=== PATIENT | female | born 1965 | race African-American/Black ===

== ENCOUNTER 2024-05-01 11:42 | Inpatient (IN) | payer MEDICAID, OTHER ==
[~2024-05-01] VITALS: Ht 168.9 cm; Wt 89.4 kg
[2024-05-01] MEDS: SODIUM CHLORIDE 0.9% 1,000 ML IV ONE ×2 (12:22→16:45)
[2024-05-01] MEDS: ONDANSETRON HCL 4 MG/2 ML VIAL IV ONE (12:32)
[2024-05-01] MEDS: MORPHINE SULFATE 4 MG/ML SYR/VIAL IV ONE (12:33)
[2024-05-01 13:00] LABS: Basophils # (auto) 0.1 10 ^3/uL (0-0.2); Basophils % (auto) 1.3 % (0.0-2.0); Eosinophils # (auto) 0.1 10 ^3/uL (0-0.8); Eosinophils % (auto) 1.2 % (0.0-7.0); Hematocrit 42.2 % (36.0-46.0); Hemoglobin 14.1 g/dL (12.2-16.2); Lymphocytes # (auto) 4.1 10 ^3/uL (0.4-5.4); Lymphocytes % (auto) 51.6 % (10.0-50.0); Mean Corpuscular Hemoglobin 29.8 pg (28.0-32.0); Mean Corpuscular Hgb Conc. 33.4 g/dL (32.0-36.0); Mean Corpuscular Volume 89.1 fL (80.0-100.0); Monocytes # (auto) 0.3 10 ^3/uL (0-1.3); Monocytes % (auto) 4.3 % (0.0-12.0); Neutrophils # (auto) 3.3 10 ^3/uL (1.6-8.6); Neutrophils % (auto) 41.6 % (37.0-80.0); Nucleated Red Blood Cells % 0.1 %; Platelet Count (auto) 316 10^3/uL (140-450); Red Blood Cells 4.73 10^6/uL (4.0-5.20); Red Cell Distribution Width 13.4 % (11.8-14.3)
[2024-05-01 13:20] LABS: Chloride 102 mmol/L (98-107); Potassium 4.2 mmol/L (3.5-5.1); Sodium 135 mmol/L (136-145)
[2024-05-01 13:21] LABS: Anion Gap 6 (5-15); Carbon Dioxide 27 mmol/L (20-31)
[2024-05-01 13:22] LABS: Calcium 9.9 mg/dL (8.7-10.4)
[2024-05-01 13:27] LABS: BUN/Creatinine Ratio 12.2 (10.0-20.0); Blood Urea Nitrogen 15 mg/dL (9-23)
[2024-05-01 13:32] LABS: Glucose 582 mg/dL (74-106)
[2024-05-01 14:21] LABS: Urine Bacteria None Seen /hpf (None Seen)
[2024-05-01 14:48] LABS: Urine Blood Negative /uL (Negative); Urine Clarity Clear (Clear); Urine Color Colorless (Yellow); Urine Protein, UAD Negative (Negative); Urine Specific Gravity 1.027 (1.001-1.035); Urine Urobilinogen Normal (Negative); Urine WBC 1 /hpf (0 - 5); Urine pH 5.5 (5.0-9.0)
[2024-05-01] MEDS: InsuLIN REG 1unit/0.01ml Soln (100units/ml) IV ONE (16:45)
[2024-05-01] MEDS: ACCU-CHEK COMFORT CURVE STRIP VI SCH (17:00)
[2024-05-01] MEDS: InsuLIN REG 1unit/0.01ml Soln (100units/ml) SC SCH (17:00)
[2024-05-01] MEDS ORDERED: DEXTROSE (50%) 50ML SYRG IV PRN (17:00)
[2024-05-01] MEDS: INSULIN LANTUS (GLARGINE) 1 /0.01ml (100units/ml) SC ONE (17:00)
[2024-05-01] MEDS ORDERED: hydrALAZINE HCL 20 MG/ML VL IV PRN (17:00)
[2024-05-01] MEDS: cefTRIAXone 1GM/50ML D5W 50 ML IV ONE (18:04)
[2024-05-01 18:05] LABS: Alanine Aminotransferase 243 U/L (7-40); Aspartate Aminotransferase 316 U/L (13-40); HDL Cholesterol 65 mg/dL (40-59); LDL Cholesterol 126 mg/dL (< 100); Triglycerides 333 mg/dL (< 150)
[2024-05-01 18:06] LABS: Cholesterol 223 mg/dL (< 200)
[2024-05-01] MEDS: FLUCONAZOLE 100 MG TAB PO ONE (18:18)
[2024-05-01] MEDS: HYDROcodone-ACET 5/325MG TAB PO PRN (18:18)
[2024-05-01] MEDS: SODIUM CHLORIDE 0.9% 1,000 ML IV SCH (18:18)
[2024-05-01] MEDS: metFORMIN HYDROCHLORIDE 500 MG TAB PO SCH (18:19)
[2024-05-01] MEDS: LOSARTAN POTASSIUM 25 MG TAB PO ONE (18:32)
[2024-05-01 20:00] VITALS: PULSE 88; RESP 15; O2SAT 94
[2024-05-01] MEDS: MORPHINE SULFATE INJ 2 MG/ml SYRG IV PRN (21:19)
[2024-05-01] MEDS: INSULIN LANTUS (GLARGINE) 1 /0.01ml (100units/ml) SC SCH (22:45)
[2024-05-01] MEDS: PREGABALIN 25 MG CAP PO SCH (22:46)
[2024-05-01] MEDS: ERYTHROMY OPTH OINT 5mg/gm 1gm or 3.5gm tube OP ONE (22:46)
[2024-05-01] MEDS: ATORVASTATIN 20 MG TAB PO SCH (22:46)
[2024-05-01 23:15] VITALS: BP 113/66; PULSE 83; RESP 18; TEMP 97.4; O2SAT 95
[2024-05-01 23:26] VITALS: BP 113/66; PULSE 83; RESP 18; TEMP 97.4; O2SAT 95
[2024-05-02] VITALS (8 sets, daily range): BP systolic 115–138; BP diastolic 45–83; PULSE 75–86; RESP 16–19; TEMP 97.6–98.4; O2SAT 95–99
[2024-05-02] MEDS ORDERED: LOSA-533 PO (01:18)
[2024-05-02] MEDS ORDERED: PREG100C PO (01:18)
[2024-05-02] MEDS ORDERED: TRAZ-227 PO (01:18)
[2024-05-02] MEDS ORDERED: AMIT-118 GT (01:18)
[2024-05-02] MEDS ORDERED: ATOR40TA52 PO (01:18)
[2024-05-02] MEDS ORDERED: METF-370 PO (01:18)
[2024-05-02] MEDS: ERYTHROMY OPTH OINT 5mg/gm 1gm or 3.5gm tube OP SCH (02:00)
[2024-05-02 07:13] LABS: Alanine Aminotransferase 281 U/L (7-40); Albumin 3.7 g/dL (3.2-4.8); Alkaline Phosphatase 373 U/L (46-116); Anion Gap 7 (5-15); Aspartate Aminotransferase 505 U/L (13-40); BUN/Creatinine Ratio 18.1 (10.0-20.0); Bilirubin, Total 0.2 mg/dL (0.2-1.0); Blood Urea Nitrogen 15 mg/dL (9-23); Calcium 9.5 mg/dL (8.7-10.4); Carbon Dioxide 26 mmol/L (20-31); Chloride 107 mmol/L (98-107); Glucose 261 mg/dL (74-106); Potassium 3.9 mmol/L (3.5-5.1); Sodium 140 mmol/L (136-145); Total Protein 6.4 g/dL (5.7-8.2)
[2024-05-02 07:20] LABS: Basophils # (auto) 0 10 ^3/uL (0-0.2); Basophils % (auto) 0.4 % (0.0-2.0); Eosinophils # (auto) 0.2 10 ^3/uL (0-0.8); Eosinophils % (auto) 1.9 % (0.0-7.0); Hematocrit 37.4 % (36.0-46.0); Hemoglobin 12.6 g/dL (12.2-16.2); Lymphocytes # (auto) 5.3 10 ^3/uL (0.4-5.4); Lymphocytes % (auto) 51.8 % (10.0-50.0); Mean Corpuscular Hemoglobin 30.1 pg (28.0-32.0); Mean Corpuscular Hgb Conc. 33.8 g/dL (32.0-36.0); Mean Corpuscular Volume 88.9 fL (80.0-100.0); Monocytes # (auto) 0.4 10 ^3/uL (0-1.3); Monocytes % (auto) 3.8 % (0.0-12.0); Neutrophils # (auto) 4.3 10 ^3/uL (1.6-8.6); Neutrophils % (auto) 42.1 % (37.0-80.0); Nucleated Red Blood Cells % 0.1 %; Platelet Count (auto) 295 10^3/uL (140-450); Red Blood Cells 4.21 10^6/uL (4.0-5.20); Red Cell Distribution Width 13.3 % (11.8-14.3); White Blood Cell 10.3 10^3/uL (4.4-10.8)
[2024-05-02] MEDS: LOSARTAN POTASSIUM 25 MG TAB PO SCH (09:42)
[2024-05-02] MEDS: ENOXAPARIN SOD 40 MG/0.4 ML SYRINGE SC SCH (09:42)
[2024-05-02] MEDS: NICOTINE 7MG/24HR TOPICAL PATCH TD SCH (09:43)
[2024-05-02 09:45] LABS: Hepatitis B Surface Antigen Negative (Negative)
[2024-05-02 10:06] LABS: Hepatitis C Antibody Negative (Negative)
[2024-05-02] MEDS ORDERED: INSULIN LISPRO (HUMAN) 100 UNITS/ML ML SC SCH (11:30)
[2024-05-02] MEDS ORDERED: ARTIFICIAL TEARS 15ml EACHEYE PRN (11:30)
[2024-05-02] MEDS: FLUCONAZOLE 100 MG TAB PO ONE (12:12)
[2024-05-02] MEDS: INSULIN LISPRO (HUMAN) 100 UNITS/ML ML SC SCH (12:13)
[2024-05-03] VITALS (9 sets, daily range): BP systolic 87–127; BP diastolic 39–82; PULSE 81–102; RESP 17–19; TEMP 97.6–98.6; O2SAT 95–98
[2024-05-03] MEDS: ACETAMINOPHEN 325 MG TAB PO PRN (04:02)
[2024-05-03 06:00] LABS: Basophils # (auto) 0.1 10 ^3/uL (0-0.2); Basophils % (auto) 0.9 % (0.0-2.0); Eosinophils # (auto) 0.2 10 ^3/uL (0-0.8); Eosinophils % (auto) 2.3 % (0.0-7.0); Hematocrit 41.5 % (36.0-46.0); Hemoglobin 14.3 g/dL (12.2-16.2); Lymphocytes # (auto) 4.7 10 ^3/uL (0.4-5.4); Lymphocytes % (auto) 45.9 % (10.0-50.0); Mean Corpuscular Hemoglobin 30.1 pg (28.0-32.0); Mean Corpuscular Hgb Conc. 34.4 g/dL (32.0-36.0); Mean Corpuscular Volume 87.5 fL (80.0-100.0); Monocytes # (auto) 0.5 10 ^3/uL (0-1.3); Monocytes % (auto) 5.4 % (0.0-12.0); Neutrophils # (auto) 4.6 10 ^3/uL (1.6-8.6); Neutrophils % (auto) 45.5 % (37.0-80.0); Nucleated Red Blood Cells % 0.1 %; Platelet Count (auto) 321 10^3/uL (140-450); Red Blood Cells 4.74 10^6/uL (4.0-5.20); Red Cell Distribution Width 13.2 % (11.8-14.3); White Blood Cell 10.2 10^3/uL (4.4-10.8)
[2024-05-03 06:32] LABS: Alanine Aminotransferase 211 U/L (7-40); Albumin 4.2 g/dL (3.2-4.8); Alkaline Phosphatase 325 U/L (46-116); Anion Gap 10 (5-15); Aspartate Aminotransferase 115 U/L (13-40); BUN/Creatinine Ratio 17.8 (10.0-20.0); Bilirubin, Total 0.4 mg/dL (0.2-1.0); Blood Urea Nitrogen 13 mg/dL (9-23); Calcium 9.9 mg/dL (8.7-10.4); Carbon Dioxide 24 mmol/L (20-31); Chloride 105 mmol/L (98-107); Glucose 217 mg/dL (74-106); Magnesium 1.5 mg/dL (1.6-2.6); Phosphorus 3.9 mg/dL (2.4-5.1); Potassium 3.6 mmol/L (3.5-5.1); Sodium 139 mmol/L (136-145)
[2024-05-04 01:00] VITALS: BP 111/61; PULSE 78; RESP 18; TEMP 97.9; O2SAT 92
[2024-05-04 05:00] VITALS: BP 101/61; PULSE 91; RESP 19; TEMP 97.9; O2SAT 95
[2024-05-04 07:35] LABS: Alanine Aminotransferase 166 U/L (7-40); Alkaline Phosphatase 365 U/L (46-116)
[2024-05-04 07:36] LABS: Albumin 4.4 g/dL (3.2-4.8); Anion Gap 8 (5-15); Aspartate Aminotransferase 55 U/L (13-40); BUN/Creatinine Ratio 15.2 (10.0-20.0); Bilirubin, Total 0.3 mg/dL (0.2-1.0); Blood Urea Nitrogen 16 mg/dL (9-23); Calcium 10.4 mg/dL (8.7-10.4); Carbon Dioxide 27 mmol/L (20-31); Chloride 103 mmol/L (98-107); Glucose 311 mg/dL (74-106); Potassium 3.9 mmol/L (3.5-5.1); Sodium 138 mmol/L (136-145); Total Protein 7.6 g/dL (5.7-8.2)
[2024-05-04 08:00] VITALS: PULSE 89; RESP 17; O2SAT 97
[2024-05-04 08:36] VITALS: BP 105/65; PULSE 89; RESP 17; TEMP 98.1; O2SAT 97
[2024-05-04] MEDS ORDERED: DEXTROSE (50%) 50ML SYRG IV PRN (11:00)
[2024-05-04] MEDS: INSULIN LISPRO (HUMAN) 100 UNITS/ML ML SC SCH (11:56)
[2024-05-04] MEDS: InsuLIN REG 1unit/0.01ml Soln (100units/ml) SC SCH (11:57)
[2024-05-04] MEDS: ACCU-CHEK COMFORT CURVE STRIP VI SCH (11:58)
[2024-05-04 13:10] VITALS: BP 108/72; PULSE 85; RESP 17; TEMP 98; O2SAT 97
[2024-05-04] MEDS ORDERED: INSU100I67 SC (13:48)
[2024-05-04] MEDS ORDERED: INSU100I61 SC (13:48)
[2024-05-04 15:26] VITALS: BP 108/72; PULSE 85; RESP 17; TEMP 98; O2SAT 97
[2024-05-04] MEDS ORDERED: InsuLIN REG 1unit/0.01ml Soln (100units/ml) SC SCH (22:00)
[2024-05-04] MEDS ORDERED: INSULIN LANTUS (GLARGINE) 1 /0.01ml (100units/ml) SC SCH (22:00)
[2024-05-05 08:49] LABS: Hepatitis B Surface Antigen Negative (Negative)
[2024-05-05 09:10] LABS: Hepatitis B Core IgM Negative; Hepatitis C Antibody Negative (Negative)
[2024-05-05 09:25] LABS: Hepatitis A Ab IgM Negative
== END 2024-05-04 16:26 | disposition home or self-care (01) | DRG 82 ==
LOC: ER 11:42 → OVERFLOW 17:22 → WEST WING 23:03
PROVIDERS: ADMIT Registered Nurse; ATTEND Student in an Organized Health Care Education/Training Program
DX: H00.025 Hordeolum internum left lower eyelid (principal); E11.40 Type 2 diabetes mellitus with diabetic neuropathy, unspecified; B37.31 Acute candidiasis of vulva and vagina; E11.65 Type 2 diabetes mellitus with hyperglycemia; I10 Essential (primary) hypertension; E78.5 Hyperlipidemia, unspecified; E66.9 Obesity, unspecified; R74.01 Elevation of levels of liver transaminase levels; F17.210 Nicotine dependence, cigarettes, uncomplicated; Z79.4 Long term (current) use of insulin; Z79.84 Long term (current) use of oral hypoglycemic drugs; Z68.31 Body mass index [BMI] 31.0-31.9, adult
CPT/HCPCS: 36415; 76705; 80048; 80053; 80061; 80074; 81001; 82962; 83036; 83735; 84100; 84450; 84460; 85025; 86803; 87340; 96361; 96365; 96372; 96375; G0378; J1815; J2405

== ENCOUNTER 2024-06-22 16:57 | Inpatient (IN) | payer MEDICAID ==
[~2024-06-22] VITALS: Ht 167.6 cm; Wt 107.7 kg
[~2024-06-22 16:57] MED LIST: AMIT-118 GT; ATOR40TA52 PO; INSU100I61 SC; INSU100I67 SC; LOSA-533 PO; METF-370 PO; PREG100C PO; TRAZ-227 PO
--- NOTE | 2024-06-22 18:08 | ED.PDOC ---
History of Present Illness HPI Comments 58 y/o F, with a Hx of DM, HTN, obesity, and tobacco and EtOH use, presents with c/o generalized weakness, right shoulder and hand pain, blurry vision, and nausea s/p mechanical fall and injury 3x days ago, today. Patient endorses on gradual onset of worsening symptoms after she "tripped" and fell forward and injuring her right shoulder and hand. Patient comments on no head or additional injuries or lost of consciousness then. Patient reports no additional pertinent or relevant Hx along with any recent sick contact, travel, spoiled food, or substance use/exposure. Patient denies having any speech changes, shortness of breath, chest pain, vomiting, dizziness, fever, chills, or other associated symptoms or modifiers at this time. Chief Complaint: General Weakness Time Seen by MD: 17:50 Primary Care Provider: NONE Reviewed Notes: Nurses Notes, Medications, Allergies Allergies: Coded Allergies: NO KNOWN ALLERGIES (Unverified , 05/01/24) Home Meds Active Scripts Insulin Aspart (Novolog Flexpen Relion) 100 Unit/Ml Inj, 12 UNIT SC TIDWM for 60 Days, #2 INJ Prov:RONALD LARSEN MD 05/04/24 Insulin Detemir (Levemir Flexpen) 100 Unit/Ml Inj, 22 UNIT SC QPM for 60 Days, #2 INJ Prov:RONALD LARSEN MD 05/04/24 Reported Medications Metformin Hydrochloride (Metformin Hcl) 500 Mg Tab, 500 MG PO DAILY for 30 Days, MG 05/02/24 Trazodone Hcl (Trazodone Hcl) 50 Mg Tab, 50 MG PO, MG 05/02/24 Amitriptyline HCl (Amitriptyline HCl) 25 Mg Tab, 25 MG GT, TAB 05/02/24 Pregabalin (Lyrica) 100 Mg Cap, 1 CAP PO BID, #60 CAP 2 Refills 05/02/24 Atorvastatin Calcium (ATORVASTATIN CALCIUM) 40 Mg Tab, 1 TAB PO DAILY, #30 TAB 5 Refills 05/02/24 Losartan Potassium (Losartan Potassium) 25 Mg Tab, 25 MG PO DAILY for 30 Days, MG 05/02/24 Information Source: Patient Mode of Arrival: Ambulatory Severity: Moderate Timing: Days Duration: Since onset Prehospital treatment: None Past Medical History PAST MEDICAL HISTORY: DM, HTN Past Medical History (Other): obesity Surgical History: Surgical History (Other): right foot Sx s/p tearing ligaments [employer]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 Family History Family History: No family hx of Cancer, No family hx of Heart nick, No family hx ofKidney nick, No family hx of Liver nick, No family hx of Lung nick, No family hx of Stroke, Family hx of DM, Family hx of HTN Social History Smoker: Cigarettes Alcohol: Occasionally Drugs: Denies Drug Use Lives In: Home Constitutional: denies: chills, diaphoresis, fatigue, fever, malaise, sweats, weakness, others EENTM: reports: blurred vision; denies: double vision, ear bleeding, ear discharge, ear drainage, ear pain, ear ringing, eye pain, eye redness, hearing loss, mouth pain, mouth swelling, nasal discharge, nose bleeding, nose congestion, nose pain, photophobia, tearing, throat pain, throat swelling, voice changes, others Respiratory: denies: cough, hemoptysis, orthopnea, SOB at rest, shortness of breath, SOB with excertion, stridor, wheezing, others Cardiovascular: denies: chest pain, dizzy spells, diaphoresis, Dyspnea on exertion, edema, irregular heart beat, left arm pain, lightheadedness, palpitati ons, PND, syncope, others Gastrointestinal: reports: nausea; denies: abdomen distended, abdominal pain, blood streaked bowels, constipated, diarrhea, dysphagia, difficulty swallowing, hematemesis, melena, poor appetite, poor fluid intake, rectal bleeding, rectal pain, vomiting, others Genitourinary: denies: abnormal vagina bleeding, burning, dyspareunia, dysuria, flank pain, frequency, hematuria, incontinence, pain, , vagina discharge, urgency, others Neurological: reports: weakness; denies: dizziness, fainting, headache, left sided numbness, left sided weakness, numbness, paresthesia, pre-existing deficit, right sided numbness, right sided weakness, seizure, speech problems, tingling, tremors, others Musculoskeletal: reports: others (right shoulder and hand pain ); denies: back pain, gout, joint pain, joint swelling, muscle pain, muscle stiffness, neck pain Integumetry: denies: bruises, change in color, change in hair/nails, dryness, laceration, lesions, lumps, rash, wounds, others Allergic/Immunocompromised: denies: Difficulty Healing, Frequent Infections, Hi ves, Itching, others Hematologic/Lymphatic: denies: anemia, blood clots, easy bleeding, easy bruising, swollen glands, others Endocrine: denies: excessive hunger, excessive sweating, excessive thirst, excessive urination, flushing, intolerance to cold, intolerance to heat, unexplained weight gain, unexplained weight loss, others Psychiatric: denies: anxiety, bipolar disorder, depression, hopeless, panic disorder, schizophrenia, sleepless, suicidal, others All Other Systems: Reviewed and Negative Physical Exam General Appearance: Moderate Distress HEENT: Normal ENT Inspection, Pharynx Normal, TMs Normal Neck: Full Range of Motion, Non-Tender, Normal, Normal Inspection Respiratory: Chest Non-Tender, Lungs Clear, No Accessory Muscle Use, No Respiratory Distress, Normal Breath Sounds Cardiovascular: No Edema, No JVD, No Murmur, No Gallop, Normal Peripheral Pulses, Regular Rate/Rhythm Breast Exam: Deferred Gastrointestinal: No Organomegaly, Non Tender, No Pulsatile Mass, Normal Bowel Sounds, Soft Genitalia: Deferred Pelvic: Deferred Rectal: Deferred Extremities: No calf tenderness, Normal capillary refill, No pedal edema Musculoskeletal : Apperance: Normal Neurologic: Alert, patient coordinator front desk II-XII nml as Tested, Motor Weakness, Normal Affect, Normal Mood, No Sensory Deficits Cerebellar Function: Normal Reflexes: Normal Skin: Dry, Normal Color, Warm Lymphatic: No Adenopathy Was a procedure done? Was a procedure done?: No EKG EKG : Pulse Rate (adult): 96 [place]: Normal Cardiac Rhythm: NSR Block: None Hypertrophy: LAE, LVH ST: Nonsp Differential Dx Considerations may include: s/p mechanical fall, closed head injury, intracranial bleed, viral syndrome, electrolyte imbalance, fractures, dislocation, sprain, musculoskeletal pain X-Ray, Labs, Meds, VS Vital Signs Date Time Temp Pulse Resp B/P (MAP) Pulse Ox O2 Delivery O2 Flow Rate FiO2 06/22/24 17:15 96 06/22/24 17:12 96 06/22/24 17:09 97.5 99 18 141/81 (101) 96 Lab Test 06/22/24 18:30 06/22/24 18:01 Range/Units White Blood Count 9.8 4.4-10.8 10^3/uL Red Blood Count 4.59 4.0-5.20 10^6/uL Hemoglobin 14.1 12.2-16.2 g/dL Hematocrit 40.7 36.0-46.0 % Mean Corpuscular Volume 88.8 80.0-100.0 fL Mean Corpuscular Hemoglobin 30.8 28.0-32.0 pg Mean Corpuscular Hemoglobin Concent 34.7 32.0-36.0 g/dL Red Cell Distribution Width 13.1 11.8-14.3 % Platelet Count 381 140-450 10^3/uL Mean Platelet Volume 8.0 6.9-10.8 fL Neutrophils (%) (Auto) 47.8 37.0-80.0 % Lymphocytes (%) (Auto) 46.3 10.0-50.0 % Monocytes (%) (Auto) 3.6 0.0-12.0 % Eosinophils (%) (Auto) 1.5 0.0-7.0 % Basophils (%) (Auto) 0.8 0.0-2.0 % Neutrophils # (Auto) 4.7 1.6-8.6 10 ^3/uL Lymphocytes # (Auto) 4.5 0.4-5.4 10 ^3/uL Monocytes # (Auto) 0.4 0-1.3 10 ^3/uL Eosinophils # (Auto) 0.1 0-0.8 10 ^3/uL Basophils # (Auto) 0.1 0-0.2 10 ^3/uL Nucleated Red Blood Cells 0.1 % Sodium Level 135 L 136-145 mmol/L Potassium Level 4.2 3.5-5.1 mmol/L Chloride Level 99 98-107 mmol/L Carbon Dioxide Level 26 20-31 mmol/L Anion Gap 10 5-15 Blood Urea Nitrogen 15 9-23 mg/dL Creatinine 1.02 0.550-1.02 mg/dL Glomerular Filtration Rate Calc 64 >90 mL/min BUN/Creatinine Ratio 14.7 10.0-20.0 Serum Glucose 430 *H 74-106 mg/dL Calcium Level 10.3 8.7-10.4 mg/dL Urine Color Yellow Yellow Urine Clarity Turbid H Clear Urine pH 6.5 5.0-9.0 Urine Specific [place] 1.023 1.001-1.035 Urine Protein Trace H Negative Urine Ketones Negative Negative Urine Blood 3+ H Negative /uL Urine Nitrite Negative Negative Urine Bilirubin Negative Negative Urine Urobilinogen Over Negative mg/dL Urine Leukocyte Esterase 3+ Negative /uL Urine RBC 4 0 - 4 /hpf Urine WBC 88 0 - 5 /hpf Urine Squamous Epithelial Cells Mod <5 /hpf Urine Bacteria Few H None Seen /hpf Urine Mucus Few None Seen Urine Glucose Normal Normal mg/dL Urine test is positive for UTI The patient's serum glucose is 430 The CBC and chemistry panel are within normal limits At this time, the patient is being admitted to the hospitalist The patient will be given normal saline as a bolus as well as Rocephin 1 g IV piggyback The patient was given insulin 5 units IV push for the hyperglycemia The patient was being admitted at this time Images Reviewed?: Images reviewed and evaluated by me Time of 1ST Reevaluation: 18:20 Reevaluation 1ST: Unchanged Patient Education/Counseling: Diagnosis, Treatment, Prognosis Family Education/Counseling: No Family Present Departure 1 Departure Time of Disposition: 20:10 Impression: Primary Impression: Hyperglycemia due to type 2 diabetes mellitus Qualified Codes: E11.65 - Type 2 diabetes mellitus with hyperglycemia Additional Impression: UTI (urinary tract infection) Qualified Codes: N30.00 - Acute cystitis without hematuria Disposition: ADMITTED INPATIENT Admit to: Tele Condition: Fair Critical Care Note Critical Care Time?: Yes (35 min-critical care time only) Stability Stability form required: Yes Unstable for transfer: Telemetry monitoring (Telemetry monitoring required), ED Physician Assesment Heart Score Heart Score: Heart Score Response (Comments) Value History N/A 0 EKG N/A 0 Age N/A 0 Risk Factors N/A 0 Troponin N/A 0 Total 0 I personally scribed for CIPRIANO CORDOVA MD ([email or web address]) on 06/22/24 at 18:08. Electronically submitted by Waldo Garcia ([email or web address]). CIPRIANO CORDOVA MD Jun 22, 2024 18:08
[2024-06-22 18:40] LABS: Urine Bacteria FEW /hpf (None Seen); Urine Blood 3+ /uL (Negative); Urine Clarity Turbid (Clear); Urine Color Yellow (Yellow); Urine Mucus FEW (None Seen); Urine Protein, UAD TRACE (Negative); Urine Specific Gravity 1.023 (1.001-1.035); Urine Urobilinogen OVER mg/dL (Negative); Urine WBC 88 /hpf (0 - 5); Urine pH 6.5 (5.0-9.0)
--- NOTE | 2024-06-22 19:09 | DVH ---
EXAM: XY R HAND 2 VIEW XRAY CLINICAL HISTORY: pain COMPARISON: None TECHNIQUE: XY R HAND 2 VIEW XRAY Findings/Impression: 2 views of the right hand. There is no evidence of an acute fracture, dislocation, blastic, or lytic lesions. Mild degenerative changes of the DIP and PIP joints. No radiopaque foreign bodies. No superficial soft tissue abnormalities.
[2024-06-22 19:10] LABS: Basophils # (auto) 0.1 10 ^3/uL (0-0.2); Basophils % (auto) 0.8 % (0.0-2.0); Eosinophils # (auto) 0.1 10 ^3/uL (0-0.8); Eosinophils % (auto) 1.5 % (0.0-7.0); Hematocrit 40.7 % (36.0-46.0); Hemoglobin 14.1 g/dL (12.2-16.2); Lymphocytes # (auto) 4.5 10 ^3/uL (0.4-5.4); Lymphocytes % (auto) 46.3 % (10.0-50.0); Mean Corpuscular Hemoglobin 30.8 pg (28.0-32.0); Mean Corpuscular Hgb Conc. 34.7 g/dL (32.0-36.0); Mean Corpuscular Volume 88.8 fL (80.0-100.0); Monocytes # (auto) 0.4 10 ^3/uL (0-1.3); Monocytes % (auto) 3.6 % (0.0-12.0); Neutrophils # (auto) 4.7 10 ^3/uL (1.6-8.6); Neutrophils % (auto) 47.8 % (37.0-80.0); Nucleated Red Blood Cells % 0.1 %; Platelet Count (auto) 381 10^3/uL (140-450); Red Blood Cells 4.59 10^6/uL (4.0-5.20); Red Cell Distribution Width 13.1 % (11.8-14.3); White Blood Cell 9.8 10^3/uL (4.4-10.8)
--- NOTE | 2024-06-22 19:10 | DVH ---
EXAM: XY R SHOULDER 2+ VIEW XRAY CLINICAL HISTORY: pain COMPARISON: None TECHNIQUE: XY R SHOULDER 2+ VIEW XRAY Findings/Impression: 3 views of the right shoulder. There is no evidence of an acute fracture, dislocation, blastic, or lytic lesions. No radiopaque foreign bodies. No joint effusion or superficial soft tissue abnormalities.
[2024-06-22 19:18] LABS: Chloride 99 mmol/L (98-107); Potassium 4.2 mmol/L (3.5-5.1)
[2024-06-22 19:19] LABS: Anion Gap 10 (5-15); Calcium 10.3 mg/dL (8.7-10.4); Carbon Dioxide 26 mmol/L (20-31)
[2024-06-22 19:24] LABS: BUN/Creatinine Ratio 14.7 (10.0-20.0); Blood Urea Nitrogen 15 mg/dL (9-23)
[2024-06-22 19:39] LABS: Sodium 135 mmol/L (136-145)
[2024-06-22 19:42] LABS: Glucose 430 mg/dL (74-106)
[2024-06-22] MEDS ORDERED: ACETAMINOPHEN 325 MG TAB PO PRN (20:30)
[2024-06-22] MEDS ORDERED: ONDANSETRON HCL 4 MG/2 ML VIAL IV PRN (20:30)
[2024-06-22] MEDS ORDERED: MAALOX PLUS or MAALOX 30 ML PO PRN (20:30)
[2024-06-22] MEDS ORDERED: DOCUSATE SOD 100 MG CAP PO PRN (20:30)
[2024-06-22] MEDS ORDERED: TEMAZEPAM 15 MG CAP PO PRN (20:30)
[2024-06-22] MEDS ORDERED: LORazepam 0.5 MG TAB PO PRN (20:30)
--- NOTE | 2024-06-22 20:33 | DVHHP2 ---
History of Present Illness Reason for Visit: weakness History of Present Illness 58-year-old obese patient with hypertension and diabetes tobacco use alcohol use comes in with generalized weakness mechanical fall complaints of blurry vision patient fell 3 days ago landed on her hands had complaints of hand pain shoulder pain evaluation in the ED showed no acute signs of fractures however patient was severely unkempt with elevated levels of glucose signs of acute urinary tract infections and was recommended by the ED for further inpatient management patient has stated hist Cardiovascular: HTN Endocrine: Diabetes Review of Systems Constitutional: Yes: Weakness; No: Fever, Chills, Sweats, Malaise, Other Eyes: No: Pain, Vision change, Conjunctivae inflammation, Eyelid inflammation, Other, Redness ENT: No: Ear pain, Ear discharge, Nose pain, Nose discharge, Nose congestion, Mouth pain, Mouth swelling, Throat pain, Throat swelling, Other Respiratory: No: Cough, Dry, Shortness of breath, SOB with excertion, Wheezing, Hemoptysis, Pleuritic Pain, Sputum, Wheezing, Other Cardiovascular: No: Chest Pain, Palpitations, Orthopnea, Paroxysmal Noc. Dyspnea, Edema, Lt Headedness, Other Gastrointestinal: Abdominal Pain; No: Nausea, Vomiting, Diarrhea, Constipation, Melena, Hematochezia, Other Genitourinary: No Dysuria; Frequency, Incontinence; No Hematuria, No Retention, No Other Musculoskeletal: No: other, neck pain, shoulder pain, arm pain, back pain, hand pain, leg pain, foot pain Skin: No: Rash, Lesions, Jaundice, Bruising, Other Neurological: No: Weakness, Numbness, Incoordination, Change in speech, Confusion, Seizures, Other Allergies: Coded Allergies: NO KNOWN ALLERGIES (Unverified , 05/01/24) Exam Vital Signs Vital Signs Date Time Temp Pulse Resp B/P (MAP) Pulse Ox O2 Delivery O2 Flow Rate FiO2 06/22/24 20:13 96 06/22/24 17:09 97.5 18 141/81 (101) 96 General Appearance: Alert, Oriented X3 HEENT: Atraumatic, PERRLA Respiratory: Clear to auscultation, Normal air movement Cardiovascular: Regular rate, Normal S1 Abdominal: Normal bowel sounds, Soft Extremities: No clubbing, No cyanosis Skin: No rashes, No breakdown Neuro: Normal speech Psych/Mental Status: Mood NL Labs/Xrays Labs Test 06/22/24 18:30 06/22/24 18:01 Range/Units White Blood Count 9.8 4.4-10.8 10^3/uL Red Blood Count 4.59 4.0-5.20 10^6/uL Hemoglobin 14.1 12.2-16.2 g/dL Hematocrit 40.7 36.0-46.0 % Mean Corpuscular Volume 88.8 80.0-100.0 fL Mean Corpuscular Hemoglobin 30.8 28.0-32.0 pg Mean Corpuscular Hemoglobin Concent 34.7 32.0-36.0 g/dL Red Cell Distribution Width 13.1 11.8-14.3 % Platelet Count 381 140-450 10^3/uL Mean Platelet Volume 8.0 6.9-10.8 fL Neutrophils (%) (Auto) 47.8 37.0-80.0 % Lymphocytes (%) (Auto) 46.3 10.0-50.0 % Monocytes (%) (Auto) 3.6 0.0-12.0 % Eosinophils (%) (Auto) 1.5 0.0-7.0 % Basophils (%) (Auto) 0.8 0.0-2.0 % Neutrophils # (Auto) 4.7 1.6-8.6 10 ^3/uL Lymphocytes # (Auto) 4.5 0.4-5.4 10 ^3/uL Monocytes # (Auto) 0.4 0-1.3 10 ^3/uL Eosinophils # (Auto) 0.1 0-0.8 10 ^3/uL Basophils # (Auto) 0.1 0-0.2 10 ^3/uL Nucleated Red Blood Cells 0.1 % Sodium Level 135 L 136-145 mmol/L Potassium Level 4.2 3.5-5.1 mmol/L Chloride Level 99 98-107 mmol/L Carbon Dioxide Level 26 20-31 mmol/L Anion Gap 10 5-15 Blood Urea Nitrogen 15 9-23 mg/dL Creatinine 1.02 0.550-1.02 mg/dL Glomerular Filtration Rate Calc 64 >90 mL/min BUN/Creatinine Ratio 14.7 10.0-20.0 Serum Glucose 430 *H 74-106 mg/dL Calcium Level 10.3 8.7-10.4 mg/dL Urine Color Yellow Yellow Urine Clarity Turbid H Clear Urine pH 6.5 5.0-9.0 Urine Specific [place] 1.023 1.001-1.035 Urine Protein Trace H Negative Urine Ketones Negative Negative Urine Blood 3+ H Negative /uL Urine Nitrite Negative Negative Urine Bilirubin Negative Negative Urine Urobilinogen Over Negative mg/dL Urine Leukocyte Esterase 3+ Negative /uL Urine RBC 4 0 - 4 /hpf Urine WBC 88 0 - 5 /hpf Urine Squamous Epithelial Cells Mod <5 /hpf Urine Bacteria Few H None Seen /hpf Urine Mucus Few None Seen Urine Glucose Normal Normal mg/dL Assessment/Plan Assessment/Plan Admit med/Surg Uncontrolled diabetes type 2 Patient with no anion gap Glucose greater than 400 Patient will require insulin sliding scale very aggressive We will start low-dose long-acting b.i.d. IV hydration Possible hyperglycemia in the setting of acute infection We will continue with patient's home medication of long-acting 20 units nightly T.i.d. lispro Sliding scale for coverage Plan discussed with: Patient My Orders Orders - DIVINA LONG MD Procedure Category Date Status Time Amitriptyline Hcl PHA 06/23/24 Verified Tablet (Elavil Tablet) 10:00 Losartan Tablet PHA 06/23/24 Verified (Cozaar Tablet) 10:00 Trazodone Hcl PHA 06/23/24 Verified (Desyrel) 18:00 (Nf) Atorvastatin PHA 06/23/24 Verified Calcium 10:00 (Nf) Insulin Aspart PHA 06/23/24 Verified (Novolog Flexpen Rel 08:00 (Nf) Insulin Detemir PHA 06/23/24 Verified (Levemir Flexpen) 18:00 (Nf) Pregabalin PHA 06/22/24 Verified (Lyrica) 22:00 Admit ADMIT 06/22/24 Verified 20:21 Code Status CODE 06/22/24 Verified 20:21 Vital Signs [place] 06/22/24 Verified 20:21 Review Orders With [place] 06/22/24 Verified Adm. 20:21 Consistent DIET 06/23/24 Verified Carb(Ccho)Diabetes Breakfast Sodium Chloride 0.9% PHA 06/22/24 Verified 20:30 Lorazepam Tablet PHA 06/22/24 Verified (Ativan Tablet) 20:30 Alum & Mag PHA 06/22/24 Verified Hydrox-Simethicone 20:30 Docusate Sodium PHA 06/22/24 Verified Capsule (Colace 20:30 Acetaminophen Tablet PHA 06/22/24 Verified (Tylenol Tablet) 20:30 Temazepam (Restoril) PHA 06/22/24 Verified 20:30 Notify Md Of Changes [facility] 06/22/24 Verified From Base 20:21 Advance Directive [place] 06/22/24 Verified 20:21 Basic Metabolic Panel LAB 06/23/24 Verified 04:00 Complete Blood Count LAB 06/23/24 Verified 04:00 Patient Condition ORDERS 06/22/24 Verified 20:21 Allergies [facility] 06/22/24 Verified 20:21 Hydrocodone-Acet PHA 06/22/24 Verified 5/325mg Tab ([place] 20:30 Ondansetron Hcl PHA 06/22/24 Verified (Zofran) 20:30 Problem List: (1) Hyperglycemia due to type 2 diabetes mellitus (2) UTI (urinary tract infection) (3) Weakness Date of Service: Jun 22, 2024 Billing Provider: DIVINA LONG MD Common Visit Codes: [id number] INP/OBS CARE (HIGH) DIVINA LONG MD Jun 22, 2024 20:33
[2024-06-22 23:41] VITALS: BP 107/61; PULSE 87; RESP 18; TEMP 97.3; O2SAT 97
[2024-06-23] VITALS (10 sets, daily range): BP systolic 99–115; BP diastolic 54–62; PULSE 74–89; RESP 14–19; TEMP 97.6–98.7; O2SAT 92–98
[2024-06-23] MEDS: INSULIN LANTUS (GLARGINE) 1 /0.01ml (100units/ml) SC SCH ×2 (00:18→21:50)
[2024-06-23] MEDS: PREGABALIN 25 MG CAP PO SCH (00:22)
[2024-06-23] MEDS: cefTRIAXone 1GM/50ML D5W 50 ML IV ONE (00:35)
[2024-06-23] MEDS: InsuLIN REG 1unit/0.01ml Soln (100units/ml) IV ONE (00:39)
[2024-06-23] MEDS: SODIUM CHLORIDE 0.9% 1,000 ML IV ONE (00:40)
[2024-06-23] MEDS: SODIUM CHLORIDE 0.9% 1,000 ML IV SCH (02:00)
[2024-06-23] MEDS: HYDROcodone-ACET 5/325MG TAB PO PRN (04:07)
[2024-06-23 06:31] LABS: Chloride 101 mmol/L (98-107); Potassium 3.8 mmol/L (3.5-5.1); Sodium 137 mmol/L (136-145)
[2024-06-23 06:32] LABS: Anion Gap 9 (5-15); Calcium 10.1 mg/dL (8.7-10.4); Carbon Dioxide 27 mmol/L (20-31)
[2024-06-23 06:38] LABS: BUN/Creatinine Ratio 16.5 (10.0-20.0); Blood Urea Nitrogen 15 mg/dL (9-23)
--- NOTE | 2024-06-23 06:38 | ECG ---
[facility] Test Date: 2024-06-22 Test Time: 17:12:02 Pat Name: JAZMINE OCONNOR Department: ER Room: [address] [place] [address] Gender: F Sample Room Supervisor: MARIELY : [id number] Requested By: CIPRIANO CORDOVA Order Number: [id number] Reading MD: Tye Godinez Measurements Intervals [place] Rate: 96 P: 32 FL: 169 QRS: -18 QRSD: 92 T: 88 QT: 361 QTc: 457 Interpretive Statements Sinus rhythm Left atrial enlargement Left ventricular hypertrophy Anterior Q waves, possibly due to LVH Electronically Signed On 06-23-2024 12:05:16 PST by Tye Godinez Please click the below link to view image of tracing.
[2024-06-23 06:41] LABS: Glucose 310 mg/dL (74-106)
[2024-06-23 06:51] LABS: Basophils # (auto) 0 10 ^3/uL (0-0.2); Basophils % (auto) 0.4 % (0.0-2.0); Eosinophils # (auto) 0.2 10 ^3/uL (0-0.8); Hematocrit 40.7 % (36.0-46.0); Hemoglobin 14.2 g/dL (12.2-16.2); Lymphocytes # (auto) 3.6 10 ^3/uL (0.4-5.4); Mean Corpuscular Hemoglobin 30.9 pg (28.0-32.0); Mean Corpuscular Hgb Conc. 34.8 g/dL (32.0-36.0); Mean Corpuscular Volume 88.6 fL (80.0-100.0); Monocytes # (auto) 0.4 10 ^3/uL (0-1.3); Monocytes % (auto) 4.9 % (0.0-12.0); Neutrophils # (auto) 3.3 10 ^3/uL (1.6-8.6); Neutrophils % (auto) 44.7 % (37.0-80.0); Nucleated Red Blood Cells % 0.1 %; Platelet Count (auto) 361 10^3/uL (140-450); Red Blood Cells 4.59 10^6/uL (4.0-5.20); Red Cell Distribution Width 13.4 % (11.8-14.3); White Blood Cell 7.4 10^3/uL (4.4-10.8)
[2024-06-23] MEDS: INSULIN LISPRO (HUMAN) 100 UNITS/ML ML SC SCH ×2 (07:20→17:07)
[2024-06-23] MEDS ORDERED: INSULIN ASPART 12 UNIT SC SCH (08:00)
[2024-06-23] MEDS: cefTRIAXone 1GM/50ML D5W 50 ML IV SCH (09:08)
[2024-06-23] MEDS: MORPHINE SULFATE INJ 2 MG/ml SYRG IV PRN (09:10)
[2024-06-23] MEDS: ATORVASTATIN 20 MG TAB PO SCH (09:29)
[2024-06-23] MEDS: AMITRIPTYLINE HCL 25 MG TAB GT SCH (10:05)
[2024-06-23] MEDS: LOSARTAN POTASSIUM 25 MG TAB PO SCH (10:05)
[2024-06-23 11:27] LABS: HDL Cholesterol 55 mg/dL (40-59)
[2024-06-23 11:29] LABS: Cholesterol 242 mg/dL (< 200); LDL Cholesterol 157 mg/dL (< 100); Triglycerides 249 mg/dL (< 150)
[2024-06-23 11:57] LABS: Hepatitis B Surface Antigen Negative (Negative); Hepatitis C Antibody Negative (Negative)
--- NOTE | 2024-06-23 14:12 | DVHPN2 ---
Assessment/Plan Assessment/Plan Progress note Subjective 58-year-old female with uncontrolled diabetes admitted for hyperglycemia. Objective Physical exam Alert, oriented x3 PERRLA No JVD Clear breath sounds bilaterally S1-S2 regular rate and rhythm no murmur Abdomen soft nontender, no organomegaly Moving all four extremities No lower extremity edema No wounds on feet X-ray Shoulder and arm, no fracture Lab A1c 12 Glucose 300s Dirty UA Assessment and plan Hyperglycemia from uncontrolled insulin-dependent diabetes mellitus Diabetic neuropathy Status post mechanical fall Smoker Continue with basal bolus insulin, Lantus 13 units b.i.d., lispro 12 units t.i.d. Continue with home pregabalin trazodone Pain management, Motrin and Tylenol Nicotine replacement therapy Fingersticks t.i.d. a.c. Replete electrolytes Diet low-carbohydrate DVT prophylaxis Lovenox Plan discussed with: Patient My Orders Orders - KAZ LAY MD Procedure Category Date Status Time Insulin Lispro PHA 06/23/24 Logged (Human) (Humalog) 17:00 Date of Service: Jun 23, 2024 Billing Provider: KAZ LAY MD Common Visit Codes: [id number] INP/OBS CARE(HIGH) KAZ LAY MD Jun 23, 2024 14:12
[2024-06-23] MEDS: FLUCONAZOLE 100 MG TAB PO ONE (17:01)
[2024-06-23] MEDS: traZODone HCL 50 MG TAB PO SCH (17:13)
[2024-06-23] MEDS ORDERED: INSULIN DETEMIR 22 UNIT SC SCH (18:00)
[2024-06-24] VITALS (7 sets, daily range): BP systolic 93–129; BP diastolic 46–81; PULSE 72–85; RESP 12–19; TEMP 97.7–99.1; O2SAT 90–96
[2024-06-24] MEDS: KETOROLAC TROMETH 30 MG/ML 1ML VIAL IV PRN (04:46)
[2024-06-24 06:58] LABS: Chloride 104 mmol/L (98-107); Potassium 4.5 mmol/L (3.5-5.1)
[2024-06-24 06:59] LABS: Anion Gap 11 (5-15); Calcium 9.7 mg/dL (8.7-10.4); Carbon Dioxide 21 mmol/L (20-31)
[2024-06-24 07:02] LABS: Sodium 136 mmol/L (136-145)
[2024-06-24 07:04] LABS: BUN/Creatinine Ratio 19.4 (10.0-20.0); Blood Urea Nitrogen 18 mg/dL (9-23)
[2024-06-24 07:05] LABS: Glucose 270 mg/dL (74-106); Hematocrit 40.4 % (36.0-46.0); Hemoglobin 13.5 g/dL (12.2-16.2); Magnesium 1.6 mg/dL (1.6-2.6); Mean Corpuscular Hemoglobin 29.9 pg (28.0-32.0); Mean Corpuscular Hgb Conc. 33.4 g/dL (32.0-36.0); Mean Corpuscular Volume 89.5 fL (80.0-100.0); Platelet Count (auto) 360 10^3/uL (140-450); Red Blood Cells 4.52 10^6/uL (4.0-5.20); Red Cell Distribution Width 13.4 % (11.8-14.3); White Blood Cell 8.4 10^3/uL (4.4-10.8)
[2024-06-24 07:06] LABS: Phosphorus 3.5 mg/dL (2.4-5.1)
[2024-06-24 07:10] LABS: Band Neutrophils % (manual) 0; Basophils % (manual) 0 (0.0-2.0); Blast Cells 0; Metamyelocytes % 0; Myelocytes % 0; Promyelocytes % 0; Reactive Lymphocytes 0
[2024-06-24 08:26] LABS: Eosinophils % (manual) 4 (0-7); Lymphocytes % (manual) 60 (10.0-50.0); Monocytes % (manual) 7 (0-12); Platelet Estimate Adequate
[2024-06-24] MEDS ORDERED: DEXTROSE (50%) 50ML SYRG IV PRN ×2 (08:30→14:30)
--- NOTE | 2024-06-24 09:11 | DVHPN2 ---
Assessment/Plan Assessment/Plan Progress note Subjective 58-year-old female with uncontrolled diabetes admitted for hyperglycemia. Objective Physical exam Alert, oriented x3 PERRLA No JVD Clear breath sounds bilaterally S1-S2 regular rate and rhythm no murmur Abdomen soft nontender, no organomegaly Moving all four extremities No lower extremity edema No wounds on feet X-ray Shoulder and arm, no fracture Lab A1c 12 Glucose 300s Dirty UA Assessment and plan Hyperglycemia from uncontrolled insulin-dependent diabetes mellitus Diabetic neuropathy Status post mechanical fall Smoker vaginal candidiasis likely dietary and medication non compliance Continue with basal bolus insulin, Lantus 15 units b.i.d., lispro 12 units t.i.d. adding sliding scale on top of scheduled lispro Continue with home pregabalin trazodone Pain management, Motrin and Tylenol Nicotine replacement therapy Fingersticks t.i.d. a.c. fluconazole dietary and CDE consult Replete electrolytes Diet low-carbohydrate DVT prophylaxis Lovenox Plan discussed with: Patient My Orders Orders - KAZ LAY MD Procedure Category Date Status Time Ketorolac Injection PHA 06/23/24 In Process (Toradol Injection) 14:15 Insulin Lantus PHA 06/24/24 Logged (Glargine) (Lantus) 22:00 Insulin Lispro PHA 06/24/24 Logged (Human) (Humalog) 11:30 Glucose Blood PHA 06/24/24 Logged (Accu-Chek Comfort 11:30 Insulin R (Human) PHA 06/24/24 Logged (Insulin R) 11:30 Dextrose 50% Syringe PHA 06/24/24 Logged 08:30 Date of Service: Jun 24, 2024 Billing Provider: KAZ LAY MD Common Visit Codes: [id number] INP/OBS CARE(HIGH) KAZ LAY MD Jun 24, 2024 09:11
[2024-06-24] MEDS ORDERED: ACCU-CHEK COMFORT CURVE STRIP VI SCH (11:30)
[2024-06-24] MEDS: InsuLIN REG 1unit/0.01ml Soln (100units/ml) SC SCH (14:03)
[2024-06-24] MEDS: INSULIN LISPRO (HUMAN) 100 UNITS/ML ML SC SCH ×2 (14:06→17:44)
[2024-06-24] MEDS: ACCU-CHEK COMFORT CURVE STRIP VI SCH (17:42)
[2024-06-24] MEDS: ACETAMINOPHEN 325 MG TAB PO SCH (22:16)
[2024-06-24] MEDS: INSULIN LANTUS (GLARGINE) 1 /0.01ml (100units/ml) SC SCH (22:20)
[2024-06-25] VITALS (7 sets, daily range): BP systolic 100–138; BP diastolic 46–76; PULSE 72–87; RESP 12–19; TEMP 97.4–97.7; O2SAT 90–99
[2024-06-25] MEDS: NICOTINE 7MG/24HR TOPICAL PATCH TD SCH (10:08)
--- NOTE | 2024-06-25 12:06 | DVHPN2 ---
Subjective The patient seen and examined at bedside. No complaint today. Reviewed: Care Plan, H&P, Labs, Medications, Previous Orders, Radiology Changes from previous H/P or p: No Changes Eyes: No Pain, No Vision change, No Conjunctivae inflammation, No Eyelid inflammation, No Other, No Redness ENT: No Ear pain, No Ear discharge, No Nose pain, No Nose discharge, No Nose congestion, No Mouth pain, No Mouth swelling, No Throat pain, No Throat swelling, No Other Cardiovascular: No Chest Pain, No Palpitations, No Orthopnea, No Paroxysmal Noc. Dyspnea, No Edema, No Lt Headedness, No Other Respiratory: No Cough, No Dry, No Shortness of breath, No SOB with excertion, No Wheezing, No Hemoptysis, No Pleuritic Pain, No Sputum, No Other Gastrointestinal: No Nausea, No Vomiting; Abdominal Pain; No Diarrhea, No Constipation, No Melena, No Hematochezia, No Other Genitourinary: No Dysuria; Frequency, Incontinence; No Hematuria, No Retention, No Other Musculoskeletal: No other, No neck pain, No shoulder pain, No arm pain, No back pain, No hand pain, No leg pain, No foot pain Skin: No Rash, No Lesions, No Jaundice, No Bruising, No Other Objective Vitals Vital Signs Date Time Temp Pulse Resp B/P (MAP) Pulse Ox O2 Delivery O2 Flow Rate FiO2 06/25/24 10:08 130/76 06/25/24 08:55 97.7 84 14 99 97.7 06/24/24 20:00 Room Air* 0 21 Intake/Output Intake and Output 06/25/24 07:00 Intake Total 3458 ml Output Total 2 ml Balance 3456 ml Intake Oral 1608 ml IV Total 1850 ml Stool Total 2 ml # Voids 8 General Appearance: Alert, Oriented X3, Cooperative, No acute distress HEENT: Atraumatic, PERRLA, EOMI, Mucous membr. moist/pink Neck: Supple Lungs: Clear to auscultation, Normal air movement Cardiovascular: Regular rate, Normal S1, Normal S2, No murmurs, Gallops, Rubs Abdomen: Normal bowel sounds, Soft, No tenderness Neuro: Cranial nerves 3-12 NL Psych/Mental Status: Mental status NL Medications Current Medications Medications Dose Ordered Sig/Pernell Route Start Time Stop Time Status Last Admin Dose Admin Amitriptyline HCl 25 mg DAILY GT 06/23/24 10:00 06/25/24 10:08 25 MG Losartan Potassium 25 mg DAILY PO 06/23/24 10:00 06/25/24 10:08 25 MG Trazodone HCl 50 mg QPM PO 06/23/24 18:00 06/24/24 17:44 50 MG Atorvastatin Calcium 40 mg DAILY PO 06/23/24 10:00 06/25/24 10:08 40 MG Pregabalin 100 mg BID PO 06/22/24 22:00 06/25/24 10:08 100 MG Sodium Chloride 1,000 ml @ 100 mls/hr Q10H IV 06/22/24 20:30 06/25/24 08:30 100 MLS/HR Al Hydrox/Mg Hydrox/Simethicone 30 ml Q6HP PRN PO 06/22/24 20:30 Ceftriaxone Sodium 50 ml @ 100 mls/hr DAILY IV 06/23/24 10:00 06/25/24 10:08 100 MLS/HR Ketorolac Tromethamine 30 mg Q12HP PRN IV 06/23/24 14:15 06/28/24 14:14 06/24/24 17:44 30 MG Insulin Glargine 15 units BID@0700,2200 SC 06/24/24 22:00 06/25/24 06:17 15 UNITS Insulin Human Lispro 12 units TIDAC SC 06/24/24 11:30 06/25/24 06:19 12 UNITS Nicotine 1 patch DAILY TD 06/25/24 10:00 06/25/24 10:08 1 PATCH Acetaminophen 650 mg Q8HR PO 06/24/24 22:00 06/25/24 06:01 650 MG Diagnostic Test (Pha) 1 strip ACHS 06/24/24 17:00 06/25/24 06:17 1 STRIP Insulin Human Lispro PER DR ALIREZA URRUTIA... ACHS SC 06/24/24 17:00 06/25/24 06:18 8 UNITS Dextrose 50 ml UD PRN IV 06/24/24 14:30 Laboratory Results Laboratory Tests 06/24/24 05:28 Urinalysis Test 06/22/24 18:01 Urine Color Yellow (Yellow) Urine Clarity Turbid (Clear) H Urine pH 6.5 (5.0-9.0) Urine Specific [place] 1.023 (1.001-1.035) Urine Protein Trace (Negative) H Urine Ketones Negative (Negative) Urine Blood 3+ /uL (Negative) H Urine Nitrite Negative (Negative) Urine Bilirubin Negative (Negative) Urine Urobilinogen Over mg/dL (Negative) Urine Leukocyte Esterase 3+ /uL (Negative) Urine RBC 4 /hpf (0 - 4) Urine WBC 88 /hpf (0 - 5) Urine Squamous Epithelial Cells Mod /hpf (<5) Urine Bacteria Few /hpf (None Seen) H Urine Mucus Few (None Seen) Urine Glucose Normal mg/dL (Normal) Labs and/or images reviewed: Labs reviewed by me Assessment/Plan Assessment/Plan Hyperglycemia from uncontrolled insulin-dependent diabetes mellitus Diabetic neuropathy Status post mechanical fall Smoker vaginal candidiasis likely dietary and medication non compliance Continuing current management. Continuing with Lantus 15 units subQ twice per day Continuing with sliding scale insulin Continuing with gabapentin and trazodone Continuing with nicotine patch Continuing with Diflucan. Counseled the patient to stop smoking in length more than 15 minutes Plan discussed with: Patient Date of Service: Jun 25, 2024 Billing Provider: ASHELY MCKENZIE MD Common Visit Codes: [id number] INP/OBS CARE(HIGH) ASHELY MCKENZIE MD Jun 25, 2024 12:06
[2024-06-25] MEDS: ALPRAZolam 0.5 MG TAB PO PRN (13:09)
[2024-06-25] MEDS: FLUCONAZOLE 200MG/100ML 100 ML IV ONE (13:10)
[2024-06-26] VITALS (7 sets, daily range): BP systolic 101–145; BP diastolic 60–81; PULSE 70–95; RESP 18–20; TEMP 97.1–98.8; O2SAT 93–96
--- NOTE | 2024-06-26 12:54 | DVHPN2 ---
Subjective The patient is seen and examined at bedside. Remained elevated nausea today but no other complaint. Blood glucose still above 200. Reviewed: Care Plan, H&P, Labs, Medications, Previous Orders, Radiology Changes from previous H/P or p: No Changes Eyes: No Pain, No Vision change, No Conjunctivae inflammation, No Eyelid inflammation, No Other, No Redness ENT: No Ear pain, No Ear discharge, No Nose pain, No Nose discharge, No Nose congestion, No Mouth pain, No Mouth swelling, No Throat pain, No Throat swelling, No Other Cardiovascular: No Chest Pain, No Palpitations, No Orthopnea, No Paroxysmal Noc. Dyspnea, No Edema, No Lt Headedness, No Other Respiratory: No Cough, No Dry, No Shortness of breath, No SOB with excertion, No Wheezing, No Hemoptysis, No Pleuritic Pain, No Sputum, No Other Gastrointestinal: No Nausea, No Vomiting; Abdominal Pain; No Diarrhea, No Constipation, No Melena, No Hematochezia, No Other Genitourinary: No Dysuria; Frequency, Incontinence; No Hematuria, No Retention, No Other Musculoskeletal: No other, No neck pain, No shoulder pain, No arm pain, No back pain, No hand pain, No leg pain, No foot pain Skin: No Rash, No Lesions, No Jaundice, No Bruising, No Other Objective Vitals Vital Signs Date Time Temp Pulse Resp B/P (MAP) Pulse Ox O2 Delivery O2 Flow Rate FiO2 06/26/24 10:23 145/66 06/26/24 09:00 97.1 95 20 96 97.1 06/26/24 08:00 Room Air* 0 21 Intake/Output Intake and Output 06/26/24 07:00 Intake Total 2916 ml Output Total 1 ml Balance 2915 ml Intake Oral 1866 ml IV Total 1050 ml Stool Total 1 ml # Voids 10 General Appearance: Alert, Oriented X3, Cooperative, No acute distress HEENT: Atraumatic, PERRLA, EOMI, Mucous membr. moist/pink Neck: Supple Lungs: Clear to auscultation, Normal air movement Cardiovascular: Regular rate, Normal S1, Normal S2, No murmurs, Gallops, Rubs Abdomen: Normal bowel sounds, Soft, No tenderness Neuro: Cranial nerves 3-12 NL Psych/Mental Status: Mental status NL Medications Current Medications Medications Dose Ordered Sig/Pernell Route Start Time Stop Time Status Last Admin Dose Admin Amitriptyline HCl 25 mg DAILY GT 06/23/24 10:00 06/26/24 10:13 25 MG Losartan Potassium 25 mg DAILY PO 06/23/24 10:00 06/26/24 10:23 25 MG Trazodone HCl 50 mg QPM PO 06/23/24 18:00 06/25/24 18:24 50 MG Atorvastatin Calcium 40 mg DAILY PO 06/23/24 10:00 06/26/24 10:15 40 MG Pregabalin 100 mg BID PO 06/22/24 22:00 06/26/24 10:13 100 MG Sodium Chloride 1,000 ml @ 100 mls/hr Q10H IV 06/22/24 20:30 06/26/24 04:27 100 MLS/HR Al Hydrox/Mg Hydrox/Simethicone 30 ml Q6HP PRN PO 06/22/24 20:30 Ceftriaxone Sodium 50 ml @ 100 mls/hr DAILY IV 06/23/24 10:00 06/26/24 10:14 100 MLS/HR Ketorolac Tromethamine 30 mg Q12HP PRN IV 06/23/24 14:15 06/28/24 14:14 06/24/24 17:44 30 MG Insulin Glargine 15 units BID@0700,2200 [place] 06/24/24 22:00 06/26/24 06:33 15 UNITS Insulin Human Lispro 12 units TIDAC SC 06/24/24 11:30 06/26/24 06:33 12 UNITS Nicotine 1 patch DAILY TD 06/25/24 10:00 06/26/24 10:15 1 PATCH Acetaminophen 650 mg Q8HR PO 06/24/24 22:00 06/26/24 06:22 650 MG Diagnostic Test (Pha) 1 strip ACHS 06/24/24 17:00 06/26/24 06:34 1 STRIP Insulin Human Lispro PER DR ALIREZA URRUTIA... ACHS SC 06/24/24 17:00 06/26/24 06:34 6 UNITS Dextrose 50 ml UD PRN IV 06/24/24 14:30 Alprazolam 1 mg [id number] PRN PO 06/25/24 13:00 06/26/24 10:13 1 MG Laboratory Results Laboratory Tests 06/24/24 05:28 Urinalysis Test 06/22/24 18:01 Urine Color Yellow (Yellow) Urine Clarity Turbid (Clear) H Urine pH 6.5 (5.0-9.0) Urine Specific [place] 1.023 (1.001-1.035) Urine Protein Trace (Negative) H Urine Ketones Negative (Negative) Urine Blood 3+ /uL (Negative) H Urine Nitrite Negative (Negative) Urine Bilirubin Negative (Negative) Urine Urobilinogen Over mg/dL (Negative) Urine Leukocyte Esterase 3+ /uL (Negative) Urine RBC 4 /hpf (0 - 4) Urine WBC 88 /hpf (0 - 5) Urine Squamous Epithelial Cells Mod /hpf (<5) Urine Bacteria Few /hpf (None Seen) H Urine Mucus Few (None Seen) Urine Glucose Normal mg/dL (Normal) Labs and/or images reviewed: Labs reviewed by me Assessment/Plan Assessment/Plan Hyperglycemia from uncontrolled insulin-dependent diabetes mellitus Diabetic neuropathy Status post mechanical fall Smoker vaginal candidiasis likely dietary and medication non compliance Continuing current management. Continuing with Lantus and sliding scale insulin. Continuing with Diflucan. Advised to stop smoking Continuing nicotine patch Advice low carbs diet and compliance with her medication Discharge plan We will resume her antianxiety medication at home which is Xanax Plan discussed with: Patient My Orders Orders - ASHELY MCKENZIE MD Procedure Category Date Status Time Alprazolam Tablet PHA 06/25/24 In Process (Xanax Tablet) 13:00 Date of Service: Jun 26, 2024 Billing Provider: ASHELY MCKENZIE MD Common Visit Codes: [id number] INP/OBS CARE(HIGH) ASHELY MCKENZIE MD Jun 26, 2024 12:54
[2024-06-26] MEDS: INSULIN LANTUS (GLARGINE) 1 /0.01ml (100units/ml) SC SCH (21:49)
[2024-06-27 01:00] VITALS: BP 114/62; PULSE 88; RESP 19; TEMP 98.5; O2SAT 95
[2024-06-27 05:00] VITALS: BP 128/72; PULSE 81; RESP 16; TEMP 98; O2SAT 98
[2024-06-27 09:00] VITALS: BP 141/87; PULSE 88; RESP 17; TEMP 97.8; O2SAT 94
--- NOTE | 2024-06-27 11:32 | DVHPN2 ---
Subjective The patient is seen and examined at bedside. Remained elevated nausea today but no other complaint. Blood glucose still above 200. Reviewed: Care Plan, H&P, Labs, Medications, Previous Orders, Radiology Eyes: No Pain, No Vision change, No Conjunctivae inflammation, No Eyelid inflammation, No Other, No Redness ENT: No Ear pain, No Ear discharge, No Nose pain, No Nose discharge, No Nose congestion, No Mouth pain, No Mouth swelling, No Throat pain, No Throat swelling, No Other Cardiovascular: No Chest Pain, No Palpitations, No Orthopnea, No Paroxysmal Noc. Dyspnea, No Edema, No Lt Headedness, No Other Respiratory: No Cough, No Dry, No Shortness of breath, No SOB with excertion, No Wheezing, No Hemoptysis, No Pleuritic Pain, No Sputum, No Other Gastrointestinal: No Nausea, No Vomiting; Abdominal Pain; No Diarrhea, No Constipation, No Melena, No Hematochezia, No Other Genitourinary: No Dysuria; Frequency, Incontinence; No Hematuria, No Retention, No Other Musculoskeletal: No other, No neck pain, No shoulder pain, No arm pain, No back pain, No hand pain, No leg pain, No foot pain Skin: No Rash, No Lesions, No Jaundice, No Bruising, No Other Objective Vitals Vital Signs Date Time Temp Pulse Resp B/P (MAP) Pulse Ox O2 Delivery O2 Flow Rate FiO2 06/27/24 09:49 141/87 06/27/24 09:00 97.8 88 17 94 97.8 06/26/24 20:00 Room Air* 0 21 Intake/Output Intake and Output 06/27/24 07:00 Intake Total 3080 ml Balance 3080 ml Intake Oral 2730 ml IV Total 350 ml # Voids 7 General Appearance: Alert, Oriented X3, Cooperative, No acute distress HEENT: Atraumatic, PERRLA, EOMI, Mucous membr. moist/pink Neck: Supple Lungs: Clear to auscultation, Normal air movement Cardiovascular: Regular rate, Normal S1, Normal S2, No murmurs, Gallops, Rubs Abdomen: Normal bowel sounds, Soft, No tenderness Neuro: Cranial nerves 3-12 NL Psych/Mental Status: Mental status NL Medications Current Medications Medications Dose Ordered Sig/Pernell Route Start Time Stop Time Status Last Admin Dose Admin Amitriptyline HCl 25 mg DAILY GT 06/23/24 10:00 06/27/24 09:48 25 MG Losartan Potassium 25 mg DAILY PO 06/23/24 10:00 06/27/24 09:49 25 MG Trazodone HCl 50 mg QPM PO 06/23/24 18:00 06/26/24 16:59 50 MG Atorvastatin Calcium 40 mg DAILY PO 06/23/24 10:00 06/27/24 09:48 40 MG Pregabalin 100 mg BID PO 06/22/24 22:00 06/27/24 09:48 100 MG Sodium Chloride 1,000 ml @ 100 mls/hr Q10H IV 06/22/24 20:30 06/27/24 10:00 100 MLS/HR Al Hydrox/Mg Hydrox/Simethicone 30 ml Q6HP PRN PO 06/22/24 20:30 Ceftriaxone Sodium 50 ml @ 100 mls/hr DAILY IV 06/23/24 10:00 06/27/24 09:49 100 MLS/HR Ketorolac Tromethamine 30 mg Q12HP PRN IV 06/23/24 14:15 06/28/24 14:14 06/26/24 13:17 30 MG Insulin Human Lispro 12 units TIDAC SC 06/24/24 11:30 06/27/24 06:47 12 UNITS Nicotine 1 patch DAILY TD 06/25/24 10:00 06/27/24 11:21 1 PATCH Acetaminophen 650 mg Q8HR PO 06/24/24 22:00 06/27/24 06:03 650 MG Diagnostic Test (Pha) 1 strip ACHS 06/24/24 17:00 06/27/24 06:52 1 STRIP Insulin Human Lispro PER DR ALIREZA URRUTIA... ACHS SC 06/24/24 17:00 06/27/24 06:46 4 UNITS Dextrose 50 ml UD PRN IV 06/24/24 14:30 Alprazolam 1 mg [id number] PRN PO 06/25/24 13:00 06/26/24 10:13 1 MG Insulin Glargine 20 units BID@0700,2200 SC 06/26/24 22:00 06/27/24 06:45 20 UNITS Laboratory Results Laboratory Tests 06/24/24 05:28 Urinalysis Test 06/22/24 18:01 Urine Color Yellow (Yellow) Urine Clarity Turbid (Clear) H Urine pH 6.5 (5.0-9.0) Urine Specific [place] 1.023 (1.001-1.035) Urine Protein Trace (Negative) H Urine Ketones Negative (Negative) Urine Blood 3+ /uL (Negative) H Urine Nitrite Negative (Negative) Urine Bilirubin Negative (Negative) Urine Urobilinogen Over mg/dL (Negative) Urine Leukocyte Esterase 3+ /uL (Negative) Urine RBC 4 /hpf (0 - 4) Urine WBC 88 /hpf (0 - 5) Urine Squamous Epithelial Cells Mod /hpf (<5) Urine Bacteria Few /hpf (None Seen) H Urine Mucus Few (None Seen) Urine Glucose Normal mg/dL (Normal) Assessment/Plan Assessment/Plan Hyperglycemia from uncontrolled insulin-dependent diabetes mellitus Diabetic neuropathy Status post mechanical fall Smoker vaginal candidiasis likely dietary and medication non compliance Continuing current management. Continuing with Lantus and sliding scale insulin. Continuing with Diflucan. Advised to stop smoking Continuing nicotine patch Advice low carbs diet and compliance with her medication Discharge plan We will resume her antianxiety medication at home which is Xanax My Orders Orders - ASHELY MCKENZIE MD Procedure Category Date Status Time Insulin Lantus PHA 06/26/24 In Process (Glargine) (Lantus) 22:00 ASHELY MCKENZIE MD Jun 27, 2024 11:32
--- NOTE | 2024-06-27 11:34 | DVHDS2 ---
Discharge Summary Date of Admission Jun 22, 2024 at 20:21 Labs/Diagnostic Data: Laboratory Results Test 06/27/24 06:00 06/24/24 05:28 06/23/24 10:28 06/23/24 05:32 POC Glucose 204 mg/dl (70-106) White Blood Count 8.4 10^3/uL (4.4-10.8) Red Blood Count 4.52 10^6/uL (4.0-5.20) Hemoglobin 13.5 g/dL (12.2-16.2) Hematocrit 40.4 % (36.0-46.0) Mean Corpuscular Volume 89.5 fL (80.0-100.0) Mean Corpuscular Hemoglobin 29.9 pg (28.0-32.0) Mean Corpuscular Hemoglobin Concent 33.4 g/dL (32.0-36.0) Red Cell Distribution Width 13.4 % (11.8-14.3) Platelet Count 360 10^3/uL (140-450) Mean Platelet Volume 8.1 fL (6.9-10.8) Neutrophils (%) (Auto) % (37.0-80.0) Lymphocytes (%) (Auto) % (10.0-50.0) Monocytes (%) (Auto) % (0.0-12.0) Basophils (%) (Auto) % (0.0-2.0) Neutrophils # (Auto) 10 ^3/uL (1.6-8.6) Lymphocytes # (Auto) 10 ^3/uL (0.4-5.4) Monocytes # (Auto) 10 ^3/uL (0-1.3) Differential Total Cells Counted 100.0 (100) Neutrophils % (Manual) 29 (37.0-80.0) Band Neutrophils % (Manual) 0 Lymphocytes % (Manual) 60 (10.0-50.0) Monocytes % (Manual) 7 (0-12) Eosinophils % (Manual) 4 (0-7) Basophils % (Manual) 0 (0.0-2.0) Metamyelocytes % (manual) 0 Myelocytes % (Manual) 0 Promyelocytes % (Manual) 0 Blast Cells % (Manual) 0 Reactive Lymphocytes 0 Platelet Estimate Adequate Sodium Level 136 mmol/L (136-145) Potassium Level 4.5 mmol/L (3.5-5.1) Chloride Level 104 mmol/L (98-107) Carbon Dioxide Level 21 mmol/L (20-31) Anion Gap 11 (5-15) Blood Urea Nitrogen 18 mg/dL (9-23) Creatinine 0.93 mg/dL (0.550-1.02) Glomerular Filtration Rate Calc 72 mL/min (>90) BUN/Creatinine Ratio 19.4 (10.0-20.0) Serum Glucose 270 mg/dL (74-106) Calcium Level 9.7 mg/dL (8.7-10.4) Phosphorus Level 3.5 mg/dL (2.4-5.1) Magnesium Level 1.6 mg/dL (1.6-2.6) Hepatitis B Surface Antigen Negative (Negative) Hepatitis C Antibody Negative (Negative) Eosinophils (%) (Auto) 2.0 % (0.0-7.0) Eosinophils # (Auto) 0.2 10 ^3/uL (0-0.8) Basophils # (Auto) 0 10 ^3/uL (0-0.2) Nucleated Red Blood Cells 0.1 % Hemoglobin A1c 12.7 % A1C (<5.7) Triglycerides Level 249 mg/dL (< 150) Cholesterol Level 242 mg/dL (< 200) LDL Cholesterol 157 mg/dL (< 100) HDL Cholesterol 55 mg/dL (40-59) Test 06/22/24 18:01 Urine Color Yellow (Yellow) Urine Clarity Turbid (Clear) Urine pH 6.5 (5.0-9.0) Urine Specific [place] 1.023 (1.001-1.035) Urine Protein Trace (Negative) Urine Ketones Negative (Negative) Urine Blood 3+ /uL (Negative) Urine Nitrite Negative (Negative) Urine Bilirubin Negative (Negative) Urine Urobilinogen Over mg/dL (Negative) Urine Leukocyte Esterase 3+ /uL (Negative) Urine RBC 4 /hpf (0 - 4) Urine WBC 88 /hpf (0 - 5) Urine Squamous Epithelial Cells Mod /hpf (<5) Urine Bacteria Few /hpf (None Seen) Urine Mucus Few (None Seen) Urine Glucose Normal mg/dL (Normal) Other Laboratory Tests 06/24/24 05:28 Discharge Statement: "Patient was advised to return to the ER or call 911 if any headaches, dizziness, shortness of breath, chest pain, abdominal pain, bleeding, fevers, or worsening of medical condition. Patient was counseled about treatment plan, medications, possible side effects, patientverbalized understanding. All questions were answered to the best of my ability. This discharge took greater then 30 minutes in planning, reviewing documentation, counseling the patient, and discussing with other team members." ASSESSMENT ASSESSMENT Assessment ASHELY MCKENZIE MD Jun 27, 2024 11:34
[2024-06-27] MEDS ORDERED: METF-370 PO (11:36)
[2024-06-27] MEDS ORDERED: INSU100I67 SC (11:36)
[2024-06-27] MEDS ORDERED: ATOR40TA52 PO (12:24)
[2024-06-27] MEDS ORDERED: LOSA-533 PO (12:24)
[2024-06-27] MEDS ORDERED: TRAZ-227 PO (12:24)
[2024-06-27] MEDS ORDERED: INSU100I61 SC (12:24)
[2024-06-27] MEDS ORDERED: AMIT-118 PO (12:24)
[2024-06-27] MEDS ORDERED: ALPR1TAB2 PO (12:26)
[2024-06-27] MEDS ORDERED: PREG100C PO (12:26)
[2024-06-27 13:00] VITALS: BP 162/95; PULSE 90; RESP 16; TEMP 97.7; O2SAT 96
[2024-06-27] MEDS: hydrALAZINE HCL 20 MG/ML VL IV ONE (13:16)
[2024-06-27 14:14] VITALS: BP 162/95; TEMP 36.5
== END 2024-06-27 16:51 | disposition home or self-care (01) | DRG 531 ==
LOC: ER 16:57 → OVERFLOW 20:21 → EAST 06-23 11:45
PROVIDERS: ADMIT Hospitalist; ATTEND Internal Medicine
DX: B37.31 Acute candidiasis of vulva and vagina (principal); E11.40 Type 2 diabetes mellitus with diabetic neuropathy, unspecified; E11.65 Type 2 diabetes mellitus with hyperglycemia; N39.0 Urinary tract infection, site not specified; E66.9 Obesity, unspecified; I10 Essential (primary) hypertension; F17.210 Nicotine dependence, cigarettes, uncomplicated; Z91.148 Patient's other noncompliance with medication regimen for other reason; Z91.119 Patient's noncompliance with dietary regimen due to unspecified reason; Z79.4 Long term (current) use of insulin; Z68.38 Body mass index [BMI] 38.0-38.9, adult
CPT/HCPCS: 36415; 73030; 73120; 80048; 80061; 81001; 82962; 83036; 83735; 84100; 85007; 85025; 85027; 86803; 87340; 93005; 99291; G0378; J1450; J1815; J1885

== ENCOUNTER 2024-08-10 07:05 | Emergency (ER) | payer MEDICAID ==
[~2024-08-10] VITALS: Ht 167.6 cm; Wt 101.3 kg
[~2024-08-10 07:05] MED LIST changes: +ALPR1TAB2 PO; -AMIT-118 GT; +AMIT-118 PO
[2024-08-10 07:30] VITALS: BP 160/102; PULSE 121; RESP 18; O2SAT 96
--- NOTE | 2024-08-10 08:58 | ED.PDOC ---
General HPI Comments Pt presents for flank pain. possible UTI. Chief Complaint: Urinary Time Seen by MD: 07:39 Primary Care Provider: NONE Reviewed notes: Nurses Notes Allergies: Coded Allergies: NO KNOWN ALLERGIES (Unverified , 05/01/24) Home Meds Active Scripts Alprazolam (Xanax) 1 Mg Tab, 1 TAB PO BID PRN, #20 TAB Prov:ASHELY MCKENZIE MD 06/27/24 Insulin Aspart (Novolog Flexpen Relion) 100 Unit/Ml Inj, 12 UNIT SC TIDWM for 60 Days, #2 INJ Prov:ASHELY MCKENZIE MD 06/27/24 Trazodone Hcl (Trazodone Hcl) 50 Mg Tab, 50 MG PO DAILY PRN, #30 MG Prov:ASHELY MCKENZIE MD 06/27/24 Amitriptyline HCl (Amitriptyline HCl) 25 Mg Tab, 25 MG PO DAILY, #30 TAB Prov:ASHELY MCKENZIE MD 06/27/24 Atorvastatin Calcium (ATORVASTATIN CALCIUM) 40 Mg Tab, 1 TAB PO DAILY, #30 TAB 5 Refills Prov:ASHELY MCKENZIE MD 06/27/24 Losartan Potassium (Losartan Potassium) 25 Mg Tab, 25 MG PO DAILY for 30 Days, #30 MG 5 Refills Prov:ASHELY MCKENZIE MD 06/27/24 Insulin Detemir (Levemir Flexpen) 100 Unit/Ml Inj, 25 UNIT SC QPM for 60 Days, #2 INJ Prov:ASHELY MCKENZIE MD 06/27/24 Metformin Hydrochloride (Metformin Hcl) 500 Mg Tab, 500 MG PO BID for 30 Days, #60 TAB 5 Refills Prov:ASHELY MCKENZIE MD 06/27/24 Reported Medications Pregabalin (Lyrica) 100 Mg Cap, 1 CAP PO BID, #60 CAP 2 Refills 06/27/24 Pregabalin (Lyrica) 100 Mg Cap, 1 CAP PO BID, #60 CAP 2 Refills 05/02/24 Information Source: Patient Mode of Arrival: Ambulatory Past Medical History PAST MEDICAL HISTORY: DM, HTN 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 Family History Family History: No family hx of Cancer, No family hx of Heart nick, No family hx ofKidney nick, No family hx of Liver nick, No family hx of Lung nick, No family hx of Stroke, Family hx of DM, Family hx of HTN Social History Smoker: Cigarettes Alcohol: Occasionally Drugs: Denies Drug Use Lives In: Home All Other Systems: Reviewed and Negative (Per HPI) Physical Exam General Appearance: No Apparent Distress, Normal HEENT: Normal ENT Inspection, Pharynx Normal, TMs Normal Neck: Full Range of Motion, Non-Tender, Normal, Normal Inspection Respiratory: Chest Non-Tender, Lungs Clear, No Accessory Muscle Use, No Respiratory Distress, Normal Breath Sounds Cardiovascular: No Edema, No JVD, No Murmur, No Gallop, Normal Peripheral Pulses, Regular Rate/Rhythm Breast Exam: Deferred Gastrointestinal: No Organomegaly, Non Tender, No Pulsatile Mass, Normal Bowel Sounds, Soft Genitalia: Deferred Pelvic: Deferred Rectal: Deferred Extremities: No calf tenderness, Normal capillary refill, Normal inspection, Normal range of motion, Non-tender, No pedal edema Musculoskeletal : Apperance: Normal Neurologic: Alert, 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 Was a procedure done?: No Differential Diagnosis Kidney stone (Female): Other X-Ray, Labs, Meds, VS Vital Signs Date Time Temp Pulse Resp B/P (MAP) Pulse Ox O2 Delivery O2 Flow Rate FiO2 08/10/24 07:30 97.6 121 18 160/102 (121) 96 Lab Test 08/10/24 07:30 Range/Units POC Glucose 331 H 70-106 mg/dl Time of 1ST Reevaluation: 08:58 Reevaluation 1ST: Unchanged Patient Education/Counseling: Diagnosis Family Education/Counseling: Diagnosis Departure 1 Departure Time of Disposition: 08:58 Impression: Primary Impression: Eloped from emergency department Disposition: LEFT AWOL/ELOPED Condition: Poor Critical Care Note Critical Care Time?: No Stability Stability form required: No Heart Score Heart Score: Heart Score Response (Comments) Value History N/A 0 EKG N/A 0 Age N/A 0 Risk Factors N/A 0 Troponin N/A 0 Total 0 LUIS ALBERTO PAYNE NP Aug 10, 2024 08:58
== END 2024-08-10 08:01 | disposition left against medical advice (07) ==
LOC: ER 07:05
DX: R10.9 Unspecified abdominal pain (principal); E11.9 Type 2 diabetes mellitus without complications; I10 Essential (primary) hypertension; F17.210 Nicotine dependence, cigarettes, uncomplicated; Z87.59 Personal history of other complications of pregnancy, childbirth and the puerperium
CPT/HCPCS: 82947; 82962

== ENCOUNTER 2024-08-10 16:39 | Inpatient (IN) | payer MEDICAID ==
[~2024-08-10] VITALS: Ht 167.6 cm; Wt 102.4 kg
--- NOTE | 2024-08-10 16:56 | ED.PDOC ---
General HPI Comments 59 y/o F presents to the ED for CC of painful urination. Patient states, that she has been experiencing dysuria/hematuria x3days with associated symptoms of back pain. Patient relays, that she has experienced these symptoms in the past with previous UTI. Patient smokes tobacco, drinks occasionally, and denies illicit drug use. Patient denies frequency, flank pain, vaginal discharge, or N/V/D. No other symptoms or modifying factors at this time. Time Seen by MD: 16:50 Primary Care Provider: NONE Reviewed notes: Nurses Notes, Medications, Allergies Allergies: Coded Allergies: NO KNOWN ALLERGIES (Unverified , 05/01/24) Home Meds Active Scripts Alprazolam (Xanax) 1 Mg Tab, 1 TAB PO BID PRN, #20 TAB Prov:ASHELY MCKENZIE MD 06/27/24 Insulin Aspart (Novolog Flexpen Relion) 100 Unit/Ml Inj, 12 UNIT SC TIDWM for 60 Days, #2 INJ Prov:ASHELY MCKENZIE MD 06/27/24 Trazodone Hcl (Trazodone Hcl) 50 Mg Tab, 50 MG PO DAILY PRN, #30 MG Prov:ASHELY MCKENZIE MD 06/27/24 Amitriptyline HCl (Amitriptyline HCl) 25 Mg Tab, 25 MG PO DAILY, #30 TAB Prov:ASHELY MCKENZIE MD 06/27/24 Atorvastatin Calcium (ATORVASTATIN CALCIUM) 40 Mg Tab, 1 TAB PO DAILY, #30 TAB 5 Refills Prov:ASHELY MCKENZIE MD 06/27/24 Losartan Potassium (Losartan Potassium) 25 Mg Tab, 25 MG PO DAILY for 30 Days, #30 MG 5 Refills Prov:ASHELY MCKENZIE MD 06/27/24 Insulin Detemir (Levemir Flexpen) 100 Unit/Ml Inj, 25 UNIT SC QPM for 60 Days, #2 INJ Prov:ASHELY MCKENZIE MD 06/27/24 Metformin Hydrochloride (Metformin Hcl) 500 Mg Tab, 500 MG PO BID for 30 Days, #60 TAB 5 Refills Prov:ASHELY MCKENZIE MD 06/27/24 Reported Medications Pregabalin (Lyrica) 100 Mg Cap, 1 CAP PO BID, #60 CAP 2 Refills 06/27/24 Pregabalin (Lyrica) 100 Mg Cap, 1 CAP PO BID, #60 CAP 2 Refills 05/02/24 Information Source: Patient Mode of Arrival: Ambulatory Severity: Mild Timing: Days Duration: Since onset Prehospital treatment: None Symptoms: Dysuria, Hematuria History of: UTI Location: None Modifying factors: None associated signs and symptoms: Dysuria, Hematuria Past Medical History PAST MEDICAL HISTORY: DM, HTN 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 History: Ectopic Family History Family History: No family hx of Cancer, No family hx of Heart nick, No family hx ofKidney nick, No family hx of Liver nick, No family hx of Lung nick, No family hx of Stroke, Family hx of DM, Family hx of HTN Social History Smoker: Cigarettes Alcohol: Occasionally Drugs: Denies Drug Use Lives In: Home Constitutional: denies: chills, diaphoresis, fatigue, fever, malaise, sweats, weakness, others EENTM: denies: blurred vision, double vision, ear bleeding, ear discharge, ear drainage, ear pain, ear ringing, eye pain, eye redness, hearing loss, mouth pain, mouth swelling, nasal discharge, nose bleeding, nose congestion, nose pain, photophobia, tearing, throat pain, throat swelling, voice changes, others Respiratory: denies: cough, hemoptysis, orthopnea, SOB at rest, shortness of breath, SOB with excertion, stridor, wheezing, others Cardiovascular: denies: chest pain, dizzy spells, diaphoresis, Dyspnea on exertion, edema, irregular heart beat, left arm pain, lightheadedness, palpitations, PND, syncope, others Gastrointestinal: denies: abdomen distended, abdominal pain, blood streaked bowels, constipated, diarrhea, dysphagia, difficulty swallowing, hematemesis, melena, nausea, poor appetite, poor fluid intake, rectal bleeding, rectal pain, vomiting, others Genitourinary: reports: dysuria, hematuria, pain; denies: abnormal vagina bleeding, burning, dyspareunia, flank pain, frequency, incontinence, , vagina discharge, urgency, others Neurological: denies: dizziness, fainting, headache, left sided numbness, left sided weakness, numbness, paresthesia, pre-existing deficit, right sided numbness, right sided weakness, seizure, speech problems, tingling, tremors, weakness, others Musculoskeletal: reports: back pain; denies: gout, joint pain, joint swelling, muscle pain, muscle stiffness, neck pain, others Integumetry: denies: bruises, change in color, change in hair/nails, dryness, laceration, lesions, lumps, rash, wounds, others Allergic/Immunocompromised: denies: Difficulty Healing, Frequent Infections, Hives, Itching, others Hematologic/Lymphatic: denies: anemia, blood clots, easy bleeding, easy bruising, swollen glands, others Endocrine: denies: excessive hunger, excessive sweating, excessive thirst, excessive urination, flushing, intolerance to cold, intolerance to heat, unexplained weight gain, unexplained weight loss, others Psychiatric: denies: anxiety, bipolar disorder, depression, hopeless, panic di sorder, schizophrenia, sleepless, suicidal, others All Other Systems: Reviewed and Negative Physical Exam General Appearance: Mild Distress HEENT: Normal ENT Inspection, Pharynx Normal, TMs Normal Neck: Full Range of Motion, Non-Tender, Normal, Normal Inspection Respiratory: Chest Non-Tender, Lungs Clear, No Accessory Muscle Use, No Respiratory Distress, Normal Breath Sounds Cardiovascular: No Edema, No JVD, No Murmur, No Gallop, Normal Peripheral Pulses, Regular Rate/Rhythm Breast Exam: Deferred Gastrointestinal: No Organomegaly, No Pulsatile Mass, Normal Bowel Sounds, Sof t, Suprapubic, Tenderness Genitalia: Deferred Pelvic: Deferred Rectal: Deferred Extremities: No calf tenderness, Normal capillary refill, Normal inspection, Normal range of motion, Non-tender, No pedal edema Musculoskeletal : Apperance: Normal Neurologic: Alert, 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 Was a procedure done?: No Differential Diagnosis Kidney stone (Female): Pancreatitis, Strain, Urolithiasis Urinary Problem (Female): Urinary retention, Urolithiasis, UTI, Vaginitis X-Ray, Labs, Meds, VS Vital Signs Date Time Temp Pulse Resp B/P (MAP) Pulse Ox O2 Delivery O2 Flow Rate FiO2 08/10/24 18:47 120 18 98 Room Air 08/10/24 18:30 98.3 120 18 133/83 (100) 98 98.3 08/10/24 16:54 97.9 120 20 152/89 (110) 97 Lab Test 08/10/24 18:57 08/10/24 18:41 08/10/24 18:18 08/10/24 16:59 Range/Units Urine Color Light-yellow Yellow Urine Clarity Clear Clear Urine pH 5.5 5.0-9.0 Urine Specific [place] 1.041 H 1.001-1.035 Urine Protein 2+ H Negative Urine Ketones 2+ H Negative Urine Blood 2+ H Negative /uL Urine Nitrite Negative Negative Urine Bilirubin Negative Negative Urine Urobilinogen Normal Negative mg/dL Urine Leukocyte Esterase Negative Negative /uL Urine RBC 4 0 - 4 /hpf Urine Microscopic WBC 3 0-5 /HPF Urine Squamous Epithelial Cells Few <5 /hpf Urine Bacteria Few H None Seen /hpf Urine Glucose 4+ H Normal mg/dL POC Glucose 464 *H 436 *H 70-106 mg/dl White Blood Count 14.7 H 4.4-10.8 10^3/uL Red Blood Count 4.83 4.0-5.20 10^6/uL Hemoglobin 14.4 12.2-16.2 g/dL Hematocrit 42.5 36.0-46.0 % Mean Corpuscular Volume 88.1 80.0-100.0 fL Mean Corpuscular Hemoglobin 29.8 28.0-32.0 pg Mean Corpuscular Hemoglobin Concent 33.8 32.0-36.0 g/dL Red Cell Distribution Width 12.8 11.8-14.3 % Platelet Count 421 140-450 10^3/uL Mean Platelet Volume 8.1 6.9-10.8 fL Neutrophils (%) (Auto) 63.3 37.0-80.0 % Lymphocytes (%) (Auto) 30.0 10.0-50.0 % Monocytes (%) (Auto) 6.0 0.0-12.0 % Eosinophils (%) (Auto) 0.1 0.0-7.0 % Basophils (%) (Auto) 0.6 0.0-2.0 % Neutrophils # (Auto) 9.3 H 1.6-8.6 10 ^3/uL Lymphocytes # (Auto) 4.4 0.4-5.4 10 ^3/uL Monocytes # (Auto) 0.9 0-1.3 10 ^3/uL Eosinophils # (Auto) 0 0-0.8 10 ^3/uL Basophils # (Auto) 0.1 0-0.2 10 ^3/uL Nucleated Red Blood Cells 0.0 % Sodium Level 134 L 136-145 mmol/L Potassium Level 3.7 3.5-5.1 mmol/L Chloride Level 100 98-107 mmol/L Carbon Dioxide Level 21 20-31 mmol/L Anion Gap 13 5-15 Blood Urea Nitrogen 16 9-23 mg/dL Creatinine 1.14 H 0.550-1.02 mg/dL Glomerular Filtration Rate Calc 56 >90 mL/min BUN/Creatinine Ratio 14.0 10.0-20.0 Serum Glucose 450 *H 74-106 mg/dL Calcium Level 10.8 H 8.7-10.4 mg/dL Test 08/10/24 16:56 Range/Units POC Glucose 475 *H 70-106 mg/dl Current Medications Medications (Trade) Dose Ordered Sig/Pernell Route Start Time Stop Time Status Last Admin Sodium Chloride 1,000 ml @ 1,000 mls/hr Q1H ONCE IV 08/10/24 17:45 08/10/24 18:44 DC 08/10/24 18:46 Insulin Human Regular (InsuLIN R) 5 units ONCE ONCE IV 08/10/24 17:45 08/10/24 17:46 DC 08/10/24 18:54 IV Hep-Lock was established The patient was given a 1 L bolus of normal saline The patient was given insulin 5 units IV push for the hyperglycemia The patient's CBC shows an elevated white blood cell count of 14.7 The urine test is positive for a UTI At this time, the patient was being admitted to the hospitalist The patient has uncontrolled diabetes with the infection in the urine so the patient has been admitted Time of 1ST Reevaluation: 17:20 Reevaluation 1ST: Unchanged Patient Education/Counseling: Diagnosis, Treatment, Prognosis Family Education/Counseling: No Family Present Departure 1 Departure Time of Disposition: 19:27 Impression: Primary Impression: Diabetes mellitus type II, uncontrolled Qualified Codes: E11.65 - Type 2 diabetes mellitus with hyperglycemia Additional Impression: UTI (urinary tract infection) Qualified Codes: N30.00 - Acute cystitis without hematuria Disposition: ADMITTED INPATIENT Admit to: Med Surg Condition: Fair Critical Care Note Critical Care Time?: No Stability Stability form required: Yes Unstable for transfer: ED Physician Assesment (Clinical assesment) Heart Score Heart Score: Heart Score Response (Comments) Value History N/A 0 EKG N/A 0 Age N/A 0 Risk Factors N/A 0 Troponin N/A 0 Total 0 I personally scribed for CIPRIANO CORDOVA MD ([email or web address]) on 08/10/24 at 16:56. Electronically submitted by Kelsie Russo ([email or web address]). I personally scribed for CIPRIANO CORDOVA MD ([email or web address]) on 08/10/24 at 17:00. Electronically submitted by Kelsie Russo ([email or web address]). CIPRIANO CORDOVA MD Aug 10, 2024 16:56
[2024-08-10 18:29] LABS: Basophils # (auto) 0.1 10 ^3/uL (0-0.2); Basophils % (auto) 0.6 % (0.0-2.0); Eosinophils # (auto) 0 10 ^3/uL (0-0.8); Eosinophils % (auto) 0.1 % (0.0-7.0); Hematocrit 42.5 % (36.0-46.0); Hemoglobin 14.4 g/dL (12.2-16.2); Lymphocytes # (auto) 4.4 10 ^3/uL (0.4-5.4); Mean Corpuscular Hemoglobin 29.8 pg (28.0-32.0); Mean Corpuscular Hgb Conc. 33.8 g/dL (32.0-36.0); Mean Corpuscular Volume 88.1 fL (80.0-100.0); Monocytes # (auto) 0.9 10 ^3/uL (0-1.3); Neutrophils # (auto) 9.3 10 ^3/uL (1.6-8.6); Neutrophils % (auto) 63.3 % (37.0-80.0); Platelet Count (auto) 421 10^3/uL (140-450); Red Blood Cells 4.83 10^6/uL (4.0-5.20); Red Cell Distribution Width 12.8 % (11.8-14.3); White Blood Cell 14.7 10^3/uL (4.4-10.8)
[2024-08-10 18:45] LABS: Anion Gap 13 (5-15); Carbon Dioxide 21 mmol/L (20-31); Chloride 100 mmol/L (98-107); Potassium 3.7 mmol/L (3.5-5.1)
[2024-08-10] MEDS: SODIUM CHLORIDE 0.9% 1,000 ML IV ONE ×2 (18:46→23:30)
[2024-08-10 18:51] LABS: Blood Urea Nitrogen 16 mg/dL (9-23)
[2024-08-10] MEDS: InsuLIN REG 1unit/0.01ml Soln (100units/ml) IV ONE (18:54)
[2024-08-10 18:59] LABS: Calcium 10.8 mg/dL (8.7-10.4); Sodium 134 mmol/L (136-145)
[2024-08-10 19:01] LABS: Glucose 450 mg/dL (74-106)
[2024-08-10 19:11] LABS: Urine Bacteria FEW /hpf (None Seen); Urine Blood 2+ /uL (Negative); Urine Clarity Clear (Clear); Urine Color Light-Yellow (Yellow); Urine Protein, UAD 2+ (Negative); Urine Specific Gravity 1.041 (1.001-1.035); Urine Squamous Epithelial Cell FEW /hpf (<5); Urine Urobilinogen Normal (Negative); Urine WBC 3 /HPF (0-5); Urine pH 5.5 (5.0-9.0)
[2024-08-10] MEDS: cefTRIAXone 1GM/50ML D5W 50 ML IV ONE (20:39)
[2024-08-10 20:52] VITALS: PULSE 102; RESP 16; O2SAT 94
--- NOTE | 2024-08-10 22:20 | DVHHPRES ---
History of Present Illness Resident Creating Document: KORINA MARTIN RESDIENT History of Present Illness This is a 59-year-old female with past history of diabetes, hypertension, allergic rhinitis, and sciatalgia came to the hospital due to dysuria since 3 days and hematuria for 10 days. The patient also reports frequency, nausea, blurry vision and chronic back pain. Patient relays, that she has experienced these symptoms in the past with previous UTI. PMHx: diabetes, hypertension, allergic rhinitis, and sciatalgia PSHx: and ectopic Social history: Patient lives with [id number] at home, uses walker for mobility, smokes cigarettes and marijuana, denies any other drug use. Home medication: Insulin (Lantus and Humalog with sliding scale), alprazolam, amitriptyline, atorvastatin, losartan, metformin, pregabalin and trazodone Allergic history: No known Allergic Review of Systems Review of Systems General: patient denies fever, fatigue, weaknes, sweating, any recent changes in appetite and weight HEENT: Reports blurry vision Cardiovascular: Denies chest pain, palpitations, dyspnea on exertion, orthopnea, or claudication. Respiratory: No cough, and wheezing. Gastrointestinal: Denies nausea, vomiting, dysphagia, odynophagia, heartburn, abdominal pain, flatulence, bloating, diarrhea, constipation, change in stool, or blood in stool. Genitourinary: Reports dysuria, hematuria, frequency, Endocrine: No heat or cold intolerance, polydipsia, polyuria, and polyphagia. Neurological: No dizziness, extremity weakness and numbness, tremors, gait disturbance, seizures, and memory impairment. Psychiatric: Denies depression, anxiety,or insomnia. Musculoskeletal: Denies neck pain, stiffness and swelling, back pain, muscle weakness, joint pain, stiffness, swelling, or limited range of motion. Skin: No rashes, itching, skin lesion, changes in hair, nail, skin texture and breast. Hematologic/Lymphatic: Denies easy bruising, bleeding tendencies, or lymph node enlargement. Allergies: Coded Allergies: NO KNOWN ALLERGIES (Unverified , 05/01/24) Exam Vital Signs Vital Signs Date Time Temp Pulse Resp B/P (MAP) Pulse Ox O2 Delivery O2 Flow Rate FiO2 08/10/24 20:52 102 16 94 Room Air* 0 21 08/10/24 20:50 98.3 132/86 (101) 98.3 Exam General Appearance: Alert, Oriented X3, Cooperative, No acute distress HEENT: Atraumatic, PERRLA, EOMI, Mucous membrane moist/pink Respiratory: Clear to auscultation, Normal air movement Cardiovascular: Regular rate, Normal S1, Normal S2, No murmurs, no chest wall tenderness Abdominal: Mild suprapubic tenderness Extremities: No clubbing, No cyanosis, No edema, Normal pulses, No tenderness/swelling Skin: No rashes, No breakdown, No significant lesion Neuro: Normal gait, Normal speech, Strength at 5/5 X4 ext, Normal tone, Sensation intact, Cranial nerves 3-12 NL, Reflexes 2+ Psych/Mental Status: Mental status NL, Mood NL Labs/Xrays Labs Test 08/10/24 18:57 08/10/24 18:41 08/10/24 18:18 Range/Units Urine Color Light-yellow Yellow Urine Clarity Clear Clear Urine pH 5.5 5.0-9.0 Urine Specific [place] 1.041 H 1.001-1.035 Urine Protein 2+ H Negative Urine Ketones 2+ H Negative Urine Blood 2+ H Negative /uL Urine Nitrite Negative Negative Urine Bilirubin Negative Negative Urine Urobilinogen Normal Negative mg/dL Urine Leukocyte Esterase Negative Negative /uL Urine RBC 4 0 - 4 /hpf Urine Microscopic WBC 3 0-5 /HPF Urine Squamous Epithelial Cells Few <5 /hpf Urine Bacteria Few H None Seen /hpf Urine Glucose 4+ H Normal mg/dL POC Glucose 464 *H 70-106 mg/dl White Blood Count 14.7 H 4.4-10.8 10^3/uL Red Blood Count 4.83 4.0-5.20 10^6/uL Hemoglobin 14.4 12.2-16.2 g/dL Hematocrit 42.5 36.0-46.0 % Mean Corpuscular Volume 88.1 80.0-100.0 fL Mean Corpuscular Hemoglobin 29.8 28.0-32.0 pg Mean Corpuscular Hemoglobin Concent 33.8 32.0-36.0 g/dL Red Cell Distribution Width 12.8 11.8-14.3 % Platelet Count 421 140-450 10^3/uL Mean Platelet Volume 8.1 6.9-10.8 fL Neutrophils (%) (Auto) 63.3 37.0-80.0 % Lymphocytes (%) (Auto) 30.0 10.0-50.0 % Monocytes (%) (Auto) 6.0 0.0-12.0 % Eosinophils (%) (Auto) 0.1 0.0-7.0 % Basophils (%) (Auto) 0.6 0.0-2.0 % Neutrophils # (Auto) 9.3 H 1.6-8.6 10 ^3/uL Lymphocytes # (Auto) 4.4 0.4-5.4 10 ^3/uL Monocytes # (Auto) 0.9 0-1.3 10 ^3/uL Eosinophils # (Auto) 0 0-0.8 10 ^3/uL Basophils # (Auto) 0.1 0-0.2 10 ^3/uL Nucleated Red Blood Cells 0.0 % Sodium Level 134 L 136-145 mmol/L Potassium Level 3.7 3.5-5.1 mmol/L Chloride Level 100 98-107 mmol/L Carbon Dioxide Level 21 20-31 mmol/L Anion Gap 13 5-15 Blood Urea Nitrogen 16 9-23 mg/dL Creatinine 1.14 H 0.550-1.02 mg/dL Glomerular Filtration Rate Calc 56 >90 mL/min BUN/Creatinine Ratio 14.0 10.0-20.0 Serum Glucose 450 *H 74-106 mg/dL Calcium Level 10.8 H 8.7-10.4 mg/dL Assessment/Plan Assessment/Plan UTI, unspecified location Urinalysis shows UTI picture Urine culture Empiric antibiotic of Rocephin Uncontrolled diabetes mellitus type 2, with hyperglycemia Lantus 20 units Insulin aggressive SS Dyslipidemia Continue atorvastatin History of Sciatalgia Continue gabapentin Cholelithiasis CT scan finding Left adrenal gland myelolipoma CT scan finding Uterine fibroid Ultrasound shows small fibroid in the anterior uterus body DIET: Diabetic diet DVT PROPHYLAXIS: Lovenox CODE STATUS: Goal of care discussed for more than 21 minutes, full code DISPOSITION: Med/surge Patient's status and paln discussed with patient. Case discussed with Dr. Carroll Plan discussed with: Patient, Other (RN) Date of Service: Aug 10, 2024 Billing Provider: JACOBO CARROLL MD Common Visit Codes: [id number] INP/OBS CARE (HIGH) HEWADMALKORINA Aug 10, 2024 22:20 JACOBO CARROLL MD Aug 11, 2024 09:47
[2024-08-10] MEDS ORDERED: NITROGLYCERIN 0.4 MG SL TAB SL PRN (22:30)
[2024-08-10] MEDS ORDERED: DEXTROSE (50%) 50ML SYRG IV PRN (23:30)
[2024-08-10] MEDS: ATORVASTATIN 20 MG TAB PO ONE (23:30)
[2024-08-10] MEDS: clonazePAM 0.5 MG TAB PO ONE (23:30)
[2024-08-11] MEDS: InsuLIN REG 1unit/0.01ml Soln (100units/ml) SC SCH
[2024-08-11 00:13] LABS: Lipase 30 U/L (12-53)
[2024-08-11 00:15] LABS: Glucose 361 mg/dL (74-106)
--- NOTE | 2024-08-11 01:24 | DVH ---
EXAM: XY CHEST XRAY 1 VIEW CLINICAL HISTORY: SOB TECHNIQUE: Single AP view of the chest WID: COMPARISON: None FINDINGS: Lines and tubes: None Chest: The heart size and pulmonary vasculature is within normal limits. Lung apices are not entirely included in the field of view. No pleural effusion, pneumothorax, or con solidation. Linear bibasilar scarring or atelectasis The osseous structures are grossly intact. IMPRESSION: No acute cardiopulmonary abnormality.
--- NOTE | 2024-08-11 01:31 | DVH ---
TRANSABDOMINAL AND TRANSVAGINAL PELVIC ULTRASOUND CLINICAL HISTORY: hematurea TECHNIQUE: Multiple grayscale ultrasound images were obtained of the pelvis via transabdominal and tr ansvaginal approach. Limited color Doppler and spectral Doppler acquisitions were also obtained. COMPARISON: None FINDINGS: Uterus: 6.3 x 5.1 x 3.8 cm. The uterine contour is smooth. There is a small fibroid seen in the anter ior uterine body measuring 1.2 cm. Endometrium: 0.3 cm. No endometrial mass is seen. Right adnexa: right ovary not visualized. No right adnexal mass seen. Left adnexa: left ovary is not visualized. No left adnexal mass seen. Other: None IMPRESSION: 1. Small fibroid in the anterior uterine body. 2. Normal endometrium. 3. Ovaries are not visualized due to overlying bowel gas.
--- NOTE | 2024-08-11 02:10 | DVH ---
CLINICAL HISTORY: Hematurea/vagina bleeding TECHNIQUE: CT of the abdomen and pelvis was performed without intravenous contrast. This exam was per formed according to our departmental dose optimization program. Up-to-date CT equipment and radiation dose reduction techniques are utilized as appropriate. [Radimetrics Exposure Report] CTDI: 18.72 DLP: 1191.68 WID: COMPARISON: None FINDINGS: Lower Thorax: Linear bibasilar scarring or atelectasis. Normal-sized heart. Liver and Biliary system: Grossly unremarkable unopacified liver. Cholelithiasis. Spleen: Unremarkable. Adrenal Glands and Kidneys: Left adrenal gland myelolipoma measuring 2.1 cm. Normal right adrenal gla nd. No hydronephrosis or nephrolithiasis. Pancreas and Retroperitoneum: Unremarkable. Aorta and Major Vessels: Aortoiliac vessels are normal in caliber containing mild calcified atheroscl erotic plaque. Bowel, Mesentery and Peritoneal space: Normal caliber small and large bowel. Normal appendix. Long se gment mild wall thickening of the descending and rectosigmoid colon although underdistended. No free air or fluid collection. Pelvis: No pelvic lymphadenopathy. Urinary bladder is mildly distended. The uterus and ovaries are at rophic. Abdominal wall and Osseous Structures: Small fat containing umbilical hernia. Multilevel lower thorac ic and lumbar spondylosis. No destructive osseous lesion. IMPRESSION: 1. Mild wall thickening of the descending and rectosigmoid colon which may be due to underdistention versus mild infectious or inflammatory colitis. 2. No bowel obstruction, fluid collection, or free air. Normal appendix 3. Cholelithiasis. 4. Left adrenal gland myelolipoma.
[2024-08-11] MEDS: ACCU-CHEK COMFORT CURVE STRIP VI SCH (04:00)
[2024-08-11] MEDS: POTASSIUM EFFERVESENT TAB 25 MEQ GT ONE ×2 (05:05→06:30)
[2024-08-11 05:45] LABS: Basophils # (auto) 0 10 ^3/uL (0-0.2); Basophils % (auto) 0.4 % (0.0-2.0); Eosinophils # (auto) 0.2 10 ^3/uL (0-0.8); Eosinophils % (auto) 1.7 % (0.0-7.0); Hematocrit 42.1 % (36.0-46.0); Hemoglobin 14.4 g/dL (12.2-16.2); Lymphocytes # (auto) 5.4 10 ^3/uL (0.4-5.4); Lymphocytes % (auto) 50.9 % (10.0-50.0); Mean Corpuscular Hemoglobin 30.1 pg (28.0-32.0); Mean Corpuscular Hgb Conc. 34.1 g/dL (32.0-36.0); Mean Corpuscular Volume 88.3 fL (80.0-100.0); Monocytes # (auto) 0.6 10 ^3/uL (0-1.3); Monocytes % (auto) 5.6 % (0.0-12.0); Neutrophils # (auto) 4.4 10 ^3/uL (1.6-8.6); Neutrophils % (auto) 41.4 % (37.0-80.0); Platelet Count (auto) 391 10^3/uL (140-450); Red Blood Cells 4.77 10^6/uL (4.0-5.20); Red Cell Distribution Width 13.5 % (11.8-14.3); White Blood Cell 10.6 10^3/uL (4.4-10.8)
[2024-08-11 06:00] LABS: Alanine Aminotransferase 25 U/L (7-40); Anion Gap 8 (5-15); Aspartate Aminotransferase 20 U/L (13-40); BUN/Creatinine Ratio 16.5 (10.0-20.0); Blood Urea Nitrogen 17 mg/dL (9-23); Calcium 9.6 mg/dL (8.7-10.4); Carbon Dioxide 27 mmol/L (20-31); Chloride 103 mmol/L (98-107); Sodium 138 mmol/L (136-145)
[2024-08-11 06:01] LABS: Albumin 4.9 g/dL (3.2-4.8); Alkaline Phosphatase 168 U/L (46-116); Bilirubin, Total 0.4 mg/dL (0.2-1.0); Glucose 361 mg/dL (74-106); Potassium 3.4 mmol/L (3.5-5.1)
[2024-08-11 06:02] LABS: Total Protein 8.2 g/dL (5.7-8.2)
[2024-08-11 06:23] VITALS: BP 119/67; PULSE 78; RESP 18; TEMP 97.6; O2SAT 100
[2024-08-11] MEDS: INSULIN LANTUS (GLARGINE) 1 /0.01ml (100units/ml) SC SCH (06:56)
[2024-08-11 08:39] VITALS: BP 102/53; PULSE 82; RESP 16; TEMP 97.8; O2SAT 99
[2024-08-11 09:03] LABS: Hepatitis B Surface Antigen Negative (Negative); Hepatitis C Antibody Negative (Negative)
[2024-08-11] MEDS ORDERED: INSULIN LANTUS (GLARGINE) 1 /0.01ml (100units/ml) SC SCH (10:00)
[2024-08-11] MEDS: PREGABALIN 25 MG CAP PO SCH (11:01)
[2024-08-11] MEDS: NYSTATIN TOPICAL CREAM 15GM TOP SCH (11:02)
[2024-08-11 12:21] VITALS: BP 114/63; PULSE 85; RESP 18; TEMP 98.4; O2SAT 97
[2024-08-11 16:44] VITALS: BP 122/68; PULSE 65; RESP 18; TEMP 98.6; O2SAT 97
--- NOTE | 2024-08-11 18:05 | DVHPNRES ---
Progress Note Date Seen: Aug 11, 2024 Resident Creating Document: MARKO BOWMAN RESIDENT Has the PT tested + for MRSA If YES, has PT been informed?: No Medical Necessity Reason Pt with a Central, PICC or Fol: No Subjective Review of Systems A 59-year-old female with past history of diabetes, hypertension, allergic rhinitis, and sciatalgia came to the hospital due to dysuria since 3 days and hematuria for 10 days. The patient also reports frequency, nausea, blurry vision and chronic back pain. Patient relays, that she has experienced these symptoms in the past with previous UTI. Patient also stated vaginal pruritus. PMHx: diabetes, hypertension, allergic rhinitis, and sciatalgia PSHx: and ectopic Social history: Patient lives with gakclj-gb-jen at home, uses walker for mobility, smokes cigarettes and marijuana, denies any other drug use. Home medication: Insulin (Lantus and Humalog with sliding scale), alprazolam, amitriptyline, atorvastatin, losartan, metformin, pregabalin and trazodone Allergic history: No known Allergic Objective vital signs Vital Sign Date Time Temp Pulse Resp B/P (MAP) Pulse Ox O2 Delivery O2 Flow Rate FiO2 08/11/24 16:44 98.6 65 18 122/68 (86) 97 98.6 08/11/24 02:58 Room Air* 0 21 medications Current Medications Medications Dose Ordered Sig/Pernell Route Start Time Stop Time Status Last Admin Dose Admin Nitroglycerin 0.4 mg Q5MINP PRN SL 08/10/24 22:30 Diagnostic Test (Pha) 1 strip IQ4HR 08/11/24 00:00 08/11/24 17:14 1 STRIP Insulin Human Regular IQ4HR SC 08/11/24 00:00 08/11/24 17:15 12 UNITS Dextrose 50 ml UD PRN IV 08/10/24 23:30 Ceftriaxone Sodium 50 ml @ 100 mls/hr Q24H IV 08/11/24 21:00 Atorvastatin Calcium 20 mg HS PO 08/11/24 22:00 Trazodone HCl 50 mg HS PO 08/11/24 22:00 Pregabalin 100 mg BID PO 08/11/24 10:00 08/11/24 11:01 100 MG Amitriptyline HCl 25 mg HS PO 08/11/24 22:00 Insulin Glargine 15 units QAM SC 08/11/24 07:00 08/11/24 06:56 15 UNITS Nystatin 1 applic BID TOP 08/11/24 10:00 08/11/24 11:02 1 APPLIC Fluconazole 100 mg DAILY PO 08/12/24 10:00 Examination General Appearance: Alert, Oriented X3, Cooperative, No acute distress HEENT: Atraumatic, PERRLA, EOMI, Mucous membrane moist/pink Respiratory: Clear to auscultation, Normal air movement Cardiovascular: Regular rate, Normal S1, Normal S2, No murmurs, no chest wall tenderness Abdominal: Mild suprapubic tenderness right CVA tenderness Extremities: No clubbing, No cyanosis, No edema, Normal pulses, No tenderness/swelling Skin: No rashes, No breakdown, No significant lesion Neuro: Normal gait, Normal speech, Strength at 5/5 X4 ext, Normal tone, Sensation intact, Cranial nerves 3-12 NL, Reflexes 2+ Psych/Mental Status: Mental status NL, Mood NL laboratory and microbiology Laboratory Tests 08/11/24 05:13 Test 08/11/24 05:13 Range/Units Serum Glucose 361 H 74-106 mg/dL Problem List/Assessment/Plan Problem List/Assessment/Plan #Possible sepsis due to below: #UTI #dehydration #hematuria #Mild wall thickening of the descending and rectosigmoid colon which may be due to underdistention versus mild infectious or inflammatory colitis. Urinalysis shows 2+h protein 2+ ketones 2+ blood Urine culture Empiric antibiotic of Rocephin CT scan findings: Adrenal Glands and Kidneys: Left adrenal gland myelolipoma measuring 2.1 cm. Normal right adrenal gland. No hydronephrosis or nephrolithiasis. 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 Case discussed with Dr. Grant Plan discussed with: Patient, Other (rn) My Orders My Orders Orders - MARKO BOWMAN Procedure Category Date Status Time Nystatin Cream PHA 08/11/24 In Process (Mycostatin Cream) 10:00 Chlamydia/Gc LAB 08/11/24 In Process Amplification 10:14 Fluconazole Tablet PHA 08/12/24 In Process (Diflucan Tablet) 10:00 RPR LAB 08/11/24 In Process 10:53 Date of Service: Aug 11, 2024 Billing Provider: ASHELY GRANT MD Common Visit Codes: [id number] INP/OBS CARE(HIGH) MARKO BOWMAN Aug 11, 2024 18:05 ASHELY GRANT MD Aug 12, 2024 07:18
[2024-08-11 20:36] VITALS: BP 114/60; PULSE 92; RESP 12; TEMP 97.8; O2SAT 95
[2024-08-11] MEDS: SODIUM CHLORIDE 0.9% 1,000 ML IV SCH (20:52)
[2024-08-11] MEDS: cefTRIAXone 1GM/50ML D5W 50 ML IV SCH (20:52)
[2024-08-11] MEDS: traZODone HCL 50 MG TAB PO SCH (21:10)
[2024-08-11] MEDS: ATORVASTATIN 20 MG TAB PO SCH (21:11)
[2024-08-11] MEDS: AMITRIPTYLINE HCL 25 MG TAB PO SCH (21:11)
[2024-08-11] MEDS ORDERED: clonazePAM 0.5 MG TAB PO ONE (22:45)
[2024-08-12 00:36] VITALS: BP 102/61; PULSE 96; RESP 13; TEMP 98.4; O2SAT 96
[2024-08-12 04:41] VITALS: BP 110/65; PULSE 78; RESP 13; TEMP 98; O2SAT 95
[2024-08-12 08:00] VITALS: PULSE 89; RESP 18
[2024-08-12 08:06] LABS: RPR Non Reactive (Non Reactive)
[2024-08-12 08:30] VITALS: BP 129/72; PULSE 94; RESP 16; TEMP 97.8; O2SAT 93
[2024-08-12] MEDS: FLUCONAZOLE 100 MG TAB PO SCH (09:09)
[2024-08-12] MEDS ORDERED: LEVO750T40 PO (12:16)
[2024-08-12] MEDS ORDERED: FLUC150T38 PO (12:17)
[2024-08-12 13:00] VITALS: BP 100/32; PULSE 88; RESP 16; TEMP 97.5; O2SAT 98
--- NOTE | 2024-08-12 18:09 | DVHDSRES ---
Discharge Summary Date of Admission Resident Creating Document: MARKO BOWMAN RESIDENT Aug 10, 2024 at 22:19 Date of Discharge: Aug 12, 2024 Admitting Diagnosis #Possible sepsis due to below: #UTI #dehydration #hematuria Labs/Diagnostic Data: Laboratory Results Test 08/12/24 12:02 08/11/24 11:32 08/11/24 05:13 08/11/24 00:36 POC Glucose 246 mg/dl (70-106) Rapid Plasma Reagin Non reactive (Non Reactive) HIV (1&2) Antibody Negative (Negative) White Blood Count 10.6 10^3/uL (4.4-10.8) Red Blood Count 4.77 10^6/uL (4.0-5.20) Hemoglobin 14.4 g/dL (12.2-16.2) Hematocrit 42.1 % (36.0-46.0) Mean Corpuscular Volume 88.3 fL (80.0-100.0) Mean Corpuscular Hemoglobin 30.1 pg (28.0-32.0) Mean Corpuscular Hemoglobin Concent 34.1 g/dL (32.0-36.0) Red Cell Distribution Width 13.5 % (11.8-14.3) Platelet Count 391 10^3/uL (140-450) Mean Platelet Volume 8.0 fL (6.9-10.8) Neutrophils (%) (Auto) 41.4 % (37.0-80.0) Lymphocytes (%) (Auto) 50.9 % (10.0-50.0) Monocytes (%) (Auto) 5.6 % (0.0-12.0) Eosinophils (%) (Auto) 1.7 % (0.0-7.0) Basophils (%) (Auto) 0.4 % (0.0-2.0) Neutrophils # (Auto) 4.4 10 ^3/uL (1.6-8.6) Lymphocytes # (Auto) 5.4 10 ^3/uL (0.4-5.4) Monocytes # (Auto) 0.6 10 ^3/uL (0-1.3) Eosinophils # (Auto) 0.2 10 ^3/uL (0-0.8) Basophils # (Auto) 0 10 ^3/uL (0-0.2) Nucleated Red Blood Cells 0.0 % Sodium Level 138 mmol/L (136-145) Potassium Level 3.4 mmol/L (3.5-5.1) Chloride Level 103 mmol/L (98-107) Carbon Dioxide Level 27 mmol/L (20-31) Anion Gap 8 (5-15) Blood Urea Nitrogen 17 mg/dL (9-23) Creatinine 1.03 mg/dL (0.550-1.02) Glomerular Filtration Rate Calc 63 mL/min (>90) BUN/Creatinine Ratio 16.5 (10.0-20.0) Serum Glucose 361 mg/dL (74-106) Calcium Level 9.6 mg/dL (8.7-10.4) Magnesium Level 1.7 mg/dL (1.6-2.6) Total Bilirubin 0.4 mg/dL (0.2-1.0) Aspartate Amino Transferase (AST) 20 U/L (13-40) Alanine Aminotransferase (ALT) 25 U/L (7-40) Alkaline Phosphatase 168 U/L (46-116) Total Protein 8.2 g/dL (5.7-8.2) Albumin 4.9 g/dL (3.2-4.8) Hepatitis B Surface Antigen Negative (Negative) Hepatitis C Antibody Negative (Negative) Lactic Acid Level 1.9 mmol/L (0.4-2.0) Test 08/10/24 23:48 08/10/24 18:57 Lipase 30 U/L (12-53) Urine Color Light-yellow (Yellow) Urine Clarity Clear (Clear) Urine pH 5.5 (5.0-9.0) Urine Specific [place] 1.041 (1.001-1.035) Urine Protein 2+ (Negative) Urine Ketones 2+ (Negative) Urine Blood 2+ /uL (Negative) Urine Nitrite Negative (Negative) Urine Bilirubin Negative (Negative) Urine Urobilinogen Normal mg/dL (Negative) Urine Leukocyte Esterase Negative /uL (Negative) Urine RBC 4 /hpf (0 - 4) Urine Microscopic WBC 3 /HPF (0-5) Urine Squamous Epithelial Cells Few /hpf (<5) Urine Bacteria Few /hpf (None Seen) Urine Glucose 4+ mg/dL (Normal) Other Laboratory Tests 08/11/24 05:13 Brief Hx & Hospital Course: This 59-year-old female with a past medical history of diabetes, hypertension, allergic rhinitis, and sciatica was admitted for dysuria, hematuria, and hyperglycemia. She reported a 10-day history of hematuria associated with nausea, blurry vision, and chronic back pain. Workup revealed a urinary tract infection, with urine culture showing mixed oma, possibly due to contamination. Empiric antibiotic therapy with ceftriaxone was initiated. Imaging revealed mild wall thickening of the descending and rectosigmoid colon, possibly due to colitis, and a small fibroid in the anterior uterine body. Hyperglycemia was treated with insulin therapy, with resolution of dehydration. Patients dyslipidemia was managed with atorvastatin. The patient also had complaints of vaginal discharge, which was treated empirically with fluconazole and nystatin cream, pending further testing gonorrhea/chlamydia. DC medications: Fluconazole 150 mg PO daily x 1 day. Levofloxacin 750 mg PO daily x 7 days. Continue home medications, including insulin Lantus, Humalog, atorvastatin, and gabapentin. Follow-Up Instructions: The patient is advised to follow up in [place] clinic to review labs within one week and with urology for further evaluation of hematuria. She should also follow up with gynecology for uterine fibroid management. Diet instructions include adherence to a diabetic-friendly diet. Operations or Procedures CLINICAL HISTORY: Hematurea/vagina bleeding TECHNIQUE: CT of the abdomen and pelvis was performed without intravenous contrast. This exam was performed according to our departmental dose optimization program. Up-to-date CT equipment and radiation dose reduction techniques are utilized as appropriate. [[employer] Exposure Report] CTDI: 18.72 DLP: 1191.68 WID: COMPARISON: None FINDINGS: Lower Thorax: Linear bibasilar scarring or atelectasis. Normal-sized heart. Liver and Biliary system: Grossly unremarkable unopacified liver. Cholelithiasis. Spleen: Unremarkable. Adrenal Glands and Kidneys: Left adrenal gland myelolipoma measuring 2.1 cm. Normal right adrenal gland. No hydronephrosis or nephrolithiasis. Pancreas and Retroperitoneum: Unremarkable. Aorta and Major Vessels: Aortoiliac vessels are normal in caliber containing mild calcified atherosclerotic plaque. Bowel, Mesentery and Peritoneal space: Normal caliber small and large bowel. Normal appendix. Long segment mild wall thickening of the descending and rectosigmoid colon although underdistended. No free air or fluid collection. Pelvis: No pelvic lymphadenopathy. Urinary bladder is mildly distended. The uterus and ovaries are atrophic. Abdominal wall and Osseous Structures: Small fat containing umbilical hernia. Multilevel lower thoracic and lumbar spondylosis. No destructive osseous lesion. IMPRESSION: 1. Mild wall thickening of the descending and rectosigmoid colon which may be due to underdistention versus mild infectious or inflammatory colitis. 2. No bowel obstruction, fluid collection, or free air. Normal appendix 3. Cholelithiasis. 4. Left adrenal gland myelolipoma. Condition at Discharge: Stable Final Diagnosis/Problems List #Possible sepsis due to below: #UTI #dehydration #hematuria #Mild wall thickening of the descending and rectosigmoid colon which may be due to underdistention versus mild infectious or inflammatory colitis. Abnormal vaginal discharge Uncontrolled diabetes mellitus type 2, with hyperglycemia with dehydration Dyslipidemia History of Sciatalgia Cholelithiasis Left adrenal gland myelolipoma Uterine fibroid Discharge Disposition: Home Discharge Instruct/Medications Diet: Consistent carbohydrate Activity: Light activity Follow Up/Referral: [facility], urology and GI Medications: resume home meds + oral AB Discharge Statement: "Patient was advised to return to the ER or call 911 if any headaches, dizziness, shortness of breath, chest pain, abdominal pain, bleeding, fevers, or worsening of medical condition. Patient was counseled about treatment plan, medications, possible side effects, patientverbalized understanding. All questions were answered to the best of my ability. This discharge took greater then 30 minutes in planning, reviewing documentation, counseling the patient, and discussing with other team members." ASSESSMENT ASSESSMENT Assessment #Possible sepsis due to below: #UTI #dehydration #hematuria #Mild wall thickening of the descending and rectosigmoid colon which may be due to underdistention versus mild infectious or inflammatory colitis. Abnormal vaginal discharge Uncontrolled diabetes mellitus type 2, with hyperglycemia with dehydration Dyslipidemia History of Sciatalgia Cholelithiasis Left adrenal gland myelolipoma Uterine fibroid Date of Service: Aug 12, 2024 Billing Provider: ASHELY MCKENZIE MD Common Visit Codes: 46960-ORH/OBS DISCH DAY >30min MARKO BOWMAN RESIDENT Aug 12, 2024 18:09 ASHELY MCKENZIE MD Aug 13, 2024 08:31
[2024-08-13 05:07] LABS: Chlamydia Trachomatis, NAA Negative (Negative); Neisseria gonorrhoeae, NAA Negative (Negative)
== END 2024-08-12 18:33 | disposition home or self-care (01) | DRG 720 ==
LOC: ER 16:44 → OVERFLOW 22:19 → EAST 22:20
PROVIDERS: ADMIT Internal Medicine; ATTEND Internal Medicine
DX: A41.9 Sepsis, unspecified organism (principal); A09 Infectious gastroenteritis and colitis, unspecified; N39.0 Urinary tract infection, site not specified; E78.5 Hyperlipidemia, unspecified; K80.20 Calculus of gallbladder without cholecystitis without obstruction; D17.9 Benign lipomatous neoplasm, unspecified; D25.9 Leiomyoma of uterus, unspecified; E86.0 Dehydration; E11.65 Type 2 diabetes mellitus with hyperglycemia; I10 Essential (primary) hypertension; F17.210 Nicotine dependence, cigarettes, uncomplicated; R31.9 Hematuria, unspecified
CPT/HCPCS: 36415; 71045; 74176; 76830; 76856; 80048; 80053; 81001; 82947; 82962; 83605; 83690; 83735; 85025; 86592; 86703; 86803; 87040; 87086; 87340; G0378; J1815